=== PATIENT | female | born 1965 | race Caucasian/White ===

== ENCOUNTER 2018-04-13 17:57 | Observation (INO) ==
--- NOTE | 2018-04-13 18:26 | Emergency Department Note ---
Disposition Clinical Impression: History of cancer Fever Qualifiers: Fever type: unspecified Qualified Code(s): R50.9 - Fever, unspecified Nausea and vomiting Qualifiers: Vomiting type: unspecified Vomiting Intractability: non-intractable Qualified Code(s): R11.2 - Nausea with vomiting, unspecified Disposition: Admitted As Inpatient Condition: Fair Referrals: Hanh Pittman, ANIMAL TRAINER [Primary Care Provider] - Forms: ED Satisfaction Letter Time of Disposition: 20:08 Fever HPI - General Chief Complaint: ED Fever Stated Complaint: fever,vomiting Time Seen by Provider: 04/13/18 18:16 Source: patient Mode of arrival: ambulatory Limitations: no limitations Nursing Notes Reviewed: Yes Vital Signs Reviewed: Yes - History of Present Illness HPI Narrative: Patient is a 52-year-old female with past medical history of breast cancer with metastasis to the liver. Also has a history of hyperlipidemia. She is currently being treated at [facility]. She states that she receives chemotherapy 2 Fridays a month and then skips every third Friday, most recent treatment was within the past week. She presents today due to concern for fever, nausea, vomiting, general malaise. Patient states that she has had fevers up to 103 for the past 3 days. She is not taking [id number] Tylenol at home for fever. She is also had nausea and vomiting that started last night and has progressed into today. Denies any overt abdominal pain. Emesis was nonbloody, nonbilious. She does admit to a productive cough. She also has some congestion. She states that her grandkid has had recent cough, vomiting as well. She believes that she may have caught a viral illness from her grandkid. Denies any other chest pain, shortness of breath, abdominal pain, hematuria, diarrhea, blood in stool. She does not attend mild dysuria for the past few days and also admits to constipation. - Related Data Home Medications Medication Instructions Recorded Confirmed Atorvastatin Calcium [Lipitor] 20 mg PO DAILY 05/10/16 04/13/18 Glimepiride [Amaryl] 1 mg PO DAILY 05/10/16 04/13/18 Sertraline [Zoloft] 100 mg PO DAILY 05/10/16 04/13/18 Alogliptin Juvencio/Metformin HCl 1 tab PO BID 04/13/18 04/13/18 [Alogliptin-Metformin 12.5-500] Allergies Allergy/AdvReac Type Severity Reaction Status Date / Time No Known Allergies Allergy Verified 05/10/16 08:44 All systems ED: reviewed and negative except as stated. Constitutional: Reports: fever Cardiovascular: Denies: chest pain Respiratory: Reports: cough, sputum production. Denies: dyspnea Gastrointestinal: Reports: nausea, vomiting, constipation. Denies: abdominal pain, diarrhea, hematemesis, melena, hematochezia Genitourinary: Reports: dysuria. Denies: urgency, frequency, hematuria, discharge Neurological: Denies: headache, weakness, numbness, paresthesias Fever PMH - Past Medical History Medical history: Reports: diabetes, hyperlipidemia Surgical history: Reports: Psychiatric history: Reports: anxiety - Social History Smoking Status: Never smoker Alcohol use: Reports: none Drug use: Reports: none Physical Exam - General Limitations: no limitations General appearance: alert, in no apparent distress - Head Head exam: atraumatic, normocephalic, normal inspection - Eye Eye exam: Present: normal appearance, PERRL, EOMI - ENT ENT exam: normal oropharynx, mucous membranes dry - Neck Neck exam: Present: normal inspection, full ROM, trachea midline - Chest Chest inspection: Present: normal inspection, symmetric chest wall rise - Respiratory Respiratory exam: Present: normal lung sounds bilaterally. Absent: respiratory distress, wheezes, stridor, accessory muscle use - Cardiovascular Cardiovascular exam: Present: normal rhythm, tachycardia, normal heart sounds - Abdominal Exam Abdominal exam: Present: soft, Non-Tender. Absent: tenderness, distention, guarding, rebound, rigidity, Tanner's sign, Rovsing's sign, tenderness at McBurney's Point - Extremities Exam Extremities exam: Present: normal inspection, full ROM. Absent: tenderness, pedal edema - Neurological Exam Neurological exam: Present: alert, oriented X3. Absent: motor sensory deficit - Psychiatric Psychiatric exam: Present: normal affect, normal mood - Skin Skin exam: Present: warm, dry, intact, normal color Course Course Narrative: Patient was tachycardic and febrile on presentation. Dry mucous membranes. Lungs were clear to auscultation. Heart exam shows sinus tachycardia. Abdomen was soft and nontender with deep palpation. Negative Tanner's, negative McBurney's. We will go ahead and perform CBC, BMP, lactic acid, cultures, chest x-ray, urinalysis. We will not perform CT of abdomen and pelvis at this time as she has no abdominal tenderness. We will give 30 mL/kg bolus of fluids. We will likely start antibiotics depending on workup and then admit for dehydration and SIRS/possible sepsis criteria. 19:.4 labs show leukocytopenia; no signs of neutropenia at this time. anemia of 7.1. There is no previous hemoglobin to compare this to. Rectal exam was negative for blood. Patient denies any recent blood in stool or black/tarry stools. Chest x-ray negative for any acute cardio pulmonary process. Currently waiting on urinalysis. Went ahead and started vancomycin and Zosyn for empiric coverage. 19:58 . Urinalysis negative. We will admit for dehydration, leukopenia, anemia, nausea and vomiting, likely viral illness. Chest X-Ray 04/13/18 18:28 IMPRESSION: No acute process. Bibasilar hypoaeration D/ / Anthony Adams MD / Anthony Adams MD Interpreting Provider: Anthony Adams MD Vital Signs Temperature 103.1 F H 04/13/18 18:05 Pulse Rate 111 04/13/18 18:05 Respiratory Rate 14 04/13/18 18:05 Blood Pressure 101/62 04/13/18 18:05 O2 Sat by Pulse Oximetry 97 04/13/18 18:05 Temperature 103.1 F H 04/13/18 18:21 Pulse Rate 111 04/13/18 18:21 Respiratory Rate 14 04/13/18 18:21 Blood Pressure 101/62 04/13/18 18:21 O2 Sat by Pulse Oximetry 97 04/13/18 18:21 Oxygen Delivery Oxygen Delivery Room Air Fever - MDM Narrative Medical decision making narrative: Patient was tachycardic and febrile on presentation. Dry mucous membranes. Lungs were clear to auscultation. Heart exam shows sinus tachycardia. Abdomen was soft and nontender with deep palpation. Negative Tanner's, negative McBurney's. We will go ahead and perform CBC, BMP, lactic acid, cultures, chest x-ray, urinalysis. We will not perform CT of abdomen and pelvis at this time as she has no abdominal tenderness. We will give 30 mL/kg bolus of fluids. We will likely start antibiotics depending on workup and then admit for dehydration and SIRS/possible sepsis criteria. 19:.4 labs show leukocytopenia; no signs of neutropenia at this time. anemia of 7.1. There is no previous hemoglobin to compare this to. Rectal exam was negative for blood. Patient denies any recent blood in stool or black/tarry stools. Chest x-ray negative for any acute cardio pulmonary process. Currently waiting on urinalysis. Went ahead and started vancomycin and Zosyn for empiric coverage. 19:58 . Urinalysis negative. We will admit for dehydration, leukopenia, anemia, nausea and vomiting, likely viral illness. - Medical Records Medical records reviewed: Yes I reviewed the patient's medical records. - Lab Data Lab results reviewed: Yes I reviewed the patient's lab results. Result diagrams: 04/13/18 19:04 04/13/18 19:04 Lab Results 04/13/18 04/13/18 04/13/18 Range/Units 19:04 19:04 19:04 WBC 2.0 L (4.3-11.1) K/mcL RBC 2.88 L (3.82-4.97) M/mcL Hgb 7.1 L (11.5-15.4) g/dL Hct 22.6 L (35.3-44.9) % MCV 78.5 L (83.0-100.0) fL MCH 24.7 L (28.0-33.3) pg MCHC 31.4 L (31.6-35.5) g/dL RDW 22.9 H (11.5-14.5) % Plt Count 289 (140-400) K/mcL MPV 9.0 L (9.4-12.4) fL Immature Gran % 0.5 (0-4) % Seg Neutrophils % 85.1 % Lymphocytes % 10.9 % Monocytes % 3.0 % Eosinophils % 0.5 % Basophils % 0.0 % Neutrophils # 1.7 (1.6-8.9) K/mcL Lymphocytes # 0.2 L (0.6-4.6) K/mcL Monocytes # 0.1 (0.0-1.3) K/mcL Eosinophils # 0.0 (0.0-0.6) K/mcL Basophils # 0.0 (0.0-0.2) K/mcL PT 17.0 H (9.4-12.1) Seconds INR 1.5 APTT 33.2 (26.0-36.0) Seconds Sodium 132 L (136-145) mEq/L Potassium 3.8 (3.5-5.1) mEq/L Chloride 100 (98-107) mEq/L Carbon Dioxide 23 (23-29) mEq/L BUN 16 (6-20) mg/dL Creatinine 0.58 L (0.60-1.20) mg/dL Est GFR ( Amer) > 60 (> 60) Est GFR (Non-Af Amer) > 60 (> 60) BUN/Creatinine Ratio 28 H (6-26) Glucose 152 H (70-105) mg/dL Calculated Osmolality 278 L (280-300) Lactic Acid (0.5-2.2) mmol/L Calcium 8.5 L (8.6-10.3) mg/dL Phosphorus 2.0 L (2.7-4.5) mg/dL Magnesium 1.5 L (1.6-2.6) mg/dL Total Bilirubin 1.1 H (0.3-1.0) mg/dL Direct Bilirubin 0.3 H (0.0-0.2) mg/dL Indirect Bilirubin 0.8 (0.0-1.2) mg/dL AST 84 H (13-39) Units/L ALT 51 (7-52) Units/L Alkaline Phosphatase 105 H (34-104) Units/L Troponin I < 0.03 (< 0.04) ng/mL Serum Total Protein 7.3 (6.4-8.9) g/dL Albumin 3.1 L (3.5-5.7) g/dL Globulin 4.2 H (2.4-3.5) g/dL Albumin/Globulin Ratio 0.7 L (1.1-2.2) Ur Specimen Adequacy Urine Color (Yellow) Urine Clarity (Clear) Urine pH (5.0-8.0) pH Units Ur Specific [place] (1.010-1.025) Urine Protein (Neg-Trace) mg/dL Urine Glucose (UA) (Normal) mg/dL Urine Ketones (Negative) mg/dL Urine Blood (Negative) Urine Nitrite (Negative) Urine Bilirubin (Negative) Urine Urobilinogen (Normal) mg/dL Ur Leukocyte Esterase (Negative) Urine Microscopic RBC (0-3) per hpf Urine Microscopic WBC (0-3) per hpf Ur Squamous Epith Cells (None-Few) per lpf Urine Bacteria (None-Few) per hpf Hyaline Casts (None-Few) per lpf Ur Culture Indicated? (NO) 04/13/18 04/13/18 Range/Units 19:04 19:11 WBC (4.3-11.1) K/mcL RBC (3.82-4.97) M/mcL Hgb (11.5-15.4) g/dL Hct (35.3-44.9) % MCV (83.0-100.0) fL MCH (28.0-33.3) pg MCHC (31.6-35.5) g/dL RDW (11.5-14.5) % Plt Count (140-400) K/mcL MPV (9.4-12.4) fL Immature Gran % (0-4) % Seg Neutrophils % % Lymphocytes % % Monocytes % % Eosinophils % % Basophils % % Neutrophils # (1.6-8.9) K/mcL Lymphocytes # (0.6-4.6) K/mcL Monocytes # (0.0-1.3) K/mcL Eosinophils # (0.0-0.6) K/mcL Basophils # (0.0-0.2) K/mcL PT (9.4-12.1) Seconds INR APTT (26.0-36.0) Seconds Sodium (136-145) mEq/L Potassium (3.5-5.1) mEq/L Chloride (98-107) mEq/L Carbon Dioxide (23-29) mEq/L BUN (6-20) mg/dL Creatinine (0.60-1.20) mg/dL Est GFR ( Amer) (> 60) Est GFR (Non-Af Amer) (> 60) BUN/Creatinine Ratio (6-26) Glucose (70-105) mg/dL Calculated Osmolality (280-300) Lactic Acid 0.5 (0.5-2.2) mmol/L Calcium (8.6-10.3) mg/dL Phosphorus (2.7-4.5) mg/dL Magnesium (1.6-2.6) mg/dL Total Bilirubin (0.3-1.0) mg/dL Direct Bilirubin (0.0-0.2) mg/dL Indirect Bilirubin (0.0-1.2) mg/dL AST (13-39) Units/L ALT (7-52) Units/L Alkaline Phosphatase (34-104) Units/L Troponin I (< 0.04) ng/mL Serum Total Protein (6.4-8.9) g/dL Albumin (3.5-5.7) g/dL Globulin (2.4-3.5) g/dL Albumin/Globulin Ratio (1.1-2.2) Ur Specimen Adequacy See below A Urine Color Dark Yellow (Yellow) Urine Clarity Clear (Clear) Urine pH 6.5 (5.0-8.0) pH Units Ur Specific [place] 1.022 (1.010-1.025) Urine Protein 100 H (Neg-Trace) mg/dL Urine Glucose (UA) Normal (Normal) mg/dL Urine Ketones Trace H (Negative) mg/dL Urine Blood Negative (Negative) Urine Nitrite Negative (Negative) Urine Bilirubin Small H (Negative) Urine Urobilinogen >=8.0 H (Normal) mg/dL Ur Leukocyte Esterase Small H (Negative) Urine Microscopic RBC 5-15 H (0-3) per hpf Urine Microscopic WBC 5-15 H (0-3) per hpf Ur Squamous Epith Cells Many H (None-Few) per lpf Urine Bacteria Moderate H (None-Few) per hpf Hyaline Casts None Seen (None-Few) per lpf Ur Culture Indicated? NO. A (NO) - Radiology Data Radiology results reviewed: Yes I reviewed the patient's radiology results. - EKG Data EKG attestation: Yes I reviewed and interpreted this EKG. EKG results narrative: 04/13/2018 18:39. Sinus tachycardia. Rate 108. GA 146. QRS 97. QTC 427. Normal axis. No acute ST elevation or depression. S.B.A.R. - S.B.A.R. Situation: Demographics, MOA Background: Presenting Complaint, Relevant PMH, Meds, & Allergies Assessment: Vital Signs, Course and respsone to treatment, Exam Concerns, Patient/Family Expectation, Pertinant Lab Results Recommendation: Barrier(s) to disposition, Recommendation based on pending studies, treatments, or consults [place] Report Given to: Dr. Henry Barney Repor Time: 20:08
[2018-04-13] MEDS ORDERED: Ibuprofen 600 MG TABLET PO ONE (18:29)
[2018-04-13] MEDS ORDERED: Ondansetron 4 MG/2 ML VIAL IVP ONE (18:30)
--- NOTE | 2018-04-13 18:37 | Emergency Department Note ---
Disposition Clinical Impression: History of cancer Fever Qualifiers: Fever type: unspecified Qualified Code(s): R50.9 - Fever, unspecified Nausea and vomiting Qualifiers: Vomiting type: unspecified Vomiting Intractability: non-intractable Qualified Code(s): R11.2 - Nausea with vomiting, unspecified Disposition: Admitted As Inpatient Condition: Fair Referrals: Hanh Pittman, LABELS MOLDER [Primary Care Provider] - Forms: ED Satisfaction Letter General Adult HPI - General Chief complaint: ED Fever Stated complaint: fever,vomiting Time Seen by Provider: 04/13/18 18:16 Source: patient Mode of arrival: ambulatory Limitations: no limitations Nursing Notes Reviewed: Yes Vital Signs Reviewed: Yes - History of Present Illness HPI Narrative: ED attending attestation note: I examined this patient and my medical decision-making was reviewed with the emergency medicine resident DR PRETTY GRANADOS. I agree with the documented findings, disposition and treatment plan as described except to the extent set forth below. Briefly: 52-year-old female history of metastatic breast carcinoma. Is being treated that the [facility] from the [facility]. She has a IV port in place. Patient has undergone extensive treatment which includes but is not limited to chemotherapy both oral and IV, surgery, radiation therapy. Patient's last treatment was within the past week. Patient is had about 3 days of fever MAXIMUM TEMPERATURE of 103 measured at home occasional cough she has been exposed to one of her daughters who has a cough and her grandchild who has vomiting and an of a viral-like syndrome. Patient appears pale patient appears dehydrated. Patient will have a port accessed controlled blood send out labs give her IV fluids anti-medics analgesics. Check a chest x- ray and urinalysis and then for a infection with the antibiotics to be determined depending upon the labs and the imaging. And urinalysis. Providing 45 minutes critical care service this patient. Admission disposition pending Pain Scale: 0 - Related Data Home Medications Medication Instructions Recorded Confirmed Atorvastatin Calcium [Lipitor] 20 mg PO DAILY 05/10/16 05/10/16 Glimepiride [Amaryl] 1 mg PO DAILY 05/10/16 05/10/16 Sertraline [Zoloft] 100 mg PO DAILY 05/10/16 05/10/16 metFORMIN [Glucophage] 1,000 mg PO BIDWM 05/10/16 05/10/16 Allergies Allergy/AdvReac Type Severity Reaction Status Date / Time No Known Allergies Allergy Verified 05/10/16 08:44 Past Medical History - Past Medical History Medical history: Reports: diabetes, hyperlipidemia Surgical history: Reports: Psychiatric history: Reports: anxiety - Social History Smoking Status: Never smoker Alcohol use: Reports: none Drug use: Reports: none Physical Exam - General Limitations: no limitations Course Vital Signs Temperature 103.1 F H 04/13/18 18:05 Pulse Rate 111 04/13/18 18:05 Respiratory Rate 14 04/13/18 18:05 Blood Pressure 101/62 04/13/18 18:05 O2 Sat by Pulse Oximetry 97 04/13/18 18:05 Temperature 103.1 F H 04/13/18 18:21 Pulse Rate 111 04/13/18 18:21 Respiratory Rate 14 04/13/18 18:21 Blood Pressure 101/62 04/13/18 18:21 O2 Sat by Pulse Oximetry 97 04/13/18 18:21 Oxygen Delivery Oxygen Delivery Room Air
[2018-04-13 19:15] LABS: Eosinophils % 0.5 %; Hematocrit 22.6 % (35.3-44.9); Hemoglobin 7.1 g/dL (11.5-15.4); Immature Granulocytes % 0.5 % (0-4); Lymphocytes # 0.2 K/mcL (0.6-4.6); Lymphocytes % 10.9 %; Mean Corpuscular HGB Conc 31.4 g/dL (31.6-35.5); Mean Corpuscular Hemoglobin 24.7 pg (28.0-33.3); Mean Corpuscular Volume 78.5 fL (83.0-100.0); Monocytes # 0.1 K/mcL (0.0-1.3); Neutrophils # 1.7 K/mcL (1.6-8.9); Platelet Count 289 K/mcL (140-400); Red Blood Count 2.88 M/mcL (3.82-4.97); Red Cell Distribution Width 22.9 % (11.5-14.5); Segmented Neutrophils % 85.1 %
[2018-04-13] MEDS: 0.9 % Sodium Chloride 1,000 ML IVC SCH ×3 (19:16→21:53)
[2018-04-13 19:21] LABS: INR 1.5
[2018-04-13] MEDS ORDERED: Piperacillin/Tazobactam 3.375 GM in 0.9 % Sodium Chloride Mini Bag 100 ML IVPB ONE (19:21)
[2018-04-13 19:24] LABS: Activated Partial Thrombo Time 33.2 Seconds (26.0-36.0)
[2018-04-13 19:31] LABS: Troponin I < 0.03 ng/mL (< 0.04)
[2018-04-13 19:32] LABS: Alanine Aminotransferase 51 Units/L (7-52); Albumin 3.1 g/dL (3.5-5.7); Albumin/Globulin Ratio 0.7 (1.1-2.2); Alkaline Phosphatase 105 Units/L (34-104); Aspartate Amino Transferase 84 Units/L (13-39); BUN/Creatinine Ratio 28 (6-26); Bilirubin,Direct 0.3 mg/dL (0.0-0.2); Bilirubin,Indirect 0.8 mg/dL (0.0-1.2); Bilirubin,Total 1.1 mg/dL (0.3-1.0); Blood Urea Nitrogen 16 mg/dL (6-20); Calcium 8.5 mg/dL (8.6-10.3); Carbon Dioxide 23 mEq/L (23-29); Chloride 100 mEq/L (98-107); Globulin 4.2 g/dL (2.4-3.5); Glucose 152 mg/dL (70-105); Magnesium 1.5 mg/dL (1.6-2.6); Osmolality,Calculated 278 (280-300); Potassium 3.8 mEq/L (3.5-5.1); Sodium 132 mEq/L (136-145); Total Protein 7.3 g/dL (6.4-8.9); eGFR For Non-African Americans > 60 (> 60)
[2018-04-13 19:40] LABS: Bilirubin,Urine Small (Negative); Blood,Urine Negative (Negative); Clarity,Urine Clear (Clear); Color,Urine Dark Yellow (Yellow); Glucose,Urine (UA) Normal (Normal); Ketones,Urine Trace mg/dL (Negative); Leukocyte Esterase,Urine Small (Negative); Nitrite,Urine Negative (Negative); PH,Urine 6.5 pH Units (5.0-8.0); Protein,Urine 100 mg/dL (Neg-Trace); Specific Gravity,Urine 1.022 (1.010-1.025); Urobilinogen,Urine >=8.0 mg/dL (Normal)
[2018-04-13 19:43] LABS: Bacteria,Urine Moderate per hpf (None-Few); Hyaline Casts,Urine None Seen per lpf (None-Few); Squamous Epithelial Cell,Urine Many per lpf (None-Few)
[2018-04-13] MEDS ORDERED: Naloxone 0.4 MG/ML INJ IVP PRN (20:14)
--- NOTE | 2018-04-13 20:23 | Internal Med History&Physical ---
Date of Encounter: 04/14/18 Time of Encounter: 20:17 Internal Medicine - H&P: HPI Chief complaint: Fever, Nausea, Vomiting History of present illness: Ms. Urban is a 52 year old female with a past medical history of breast cancer with metastasis to the liver, DM and hyperlipidemia currently being treated at [facility] who presents today due to concern for fever, nausea, vomiting, general malaise. She states that she receives chemotherapy 2 Fridays a month and then skips every third Friday. Her most recent treatment was last Friday and was started on a new regimen. Has received multipe rounds previously prior to surgery as well as radiation therapy. She reports fevers up to 103 for the past 3 days. She had nausea and 1 episode vomiting that started last night and has progressed into today. Emesis was nonbloody, nonbilious. Denies any overt abdominal pain or diarrhea. She does admit to a productive cough but states that its now new. She also has some congestion but denies runny nose or soar throat. In terms of sick contacts, she states that her grandchild has had recent cough, vomiting as well and suspects that she may have caught a viral illness from them. Denies any other chest pain, shortness of breath, abdominal pain, hematuria, diarrhea, blood in stool. She does report mild dysuria for the past few days and also admits to constipation. Past Med Surg Social Fam HX - Past Medical History Medical history: diabetes, hyperlipidemia Psychiatric history: anxiety - Past Surgical History Surgical History: - Social History Smoking Status: Never smoker Alcohol use: none Drug use: none Internal Medicine - H&P: Meds Atorvastatin Calcium [Lipitor] 20 mg PO DAILY 05/10/16 [History] Glimepiride [Amaryl] 1 mg PO DAILY 05/10/16 [History] Sertraline [Zoloft] 100 mg PO DAILY 05/10/16 [History] Alogliptin Juvencio/Metformin HCl [Alogliptin-Metformin 12.5-500] 1 tab PO BID 04/13/18 [History] Allergy/AdvReac Type Severity Reaction Status Date / Time No Known Allergies Allergy Verified 05/10/16 08:44 All Systems PM: A 10-system review of systems was performed and is negative for pertinent findings except as documented above in the HPI. - Constitutional Constitutional: no chills, no fever(s), no night sweats - EENT Eyes: no change in vision, no discharge, no pain, no photophobia Ears: no ear discharge, no ear pain, no tinnitus Nose, mouth and throat: no dysphagia, no nasal discharge, no neck pain, no sore throat - Cardiovascular Cardiovascular ROS IM: no chest pain, no diaphoresis, no dyspnea, no lightheadedness, no palpitations, no syncope - Respiratory Respiratory: no cough, no dyspnea, no wheezing, no excessive phlegm production - Gastrointestinal Gastrointestinal: no abdominal pain, no diarrhea, no hematemesis, no hematochezia, no melena, no nausea, no vomiting - Genitourinary Genitourinary: no change in urinary stream, no dysuria, no flank pain, no hematuria - Musculoskeletal Musculoskeletal ROS IM: no numbness, no tingling - Integumentary Integumentary IM: no rash, no unusual bruising - Neurological Neurological ROS: no confusion, no convulsions, no focal weakness, no numbness, no tingling, no tremor(s) - Hematologic/Lymphatic Hematologic/Lymphatic: no easy bruising - Constitutional Vitals: Temp Pulse Resp BP Pulse Ox 103.1 F H 111 14 101/62 97 04/13/18 18:21 04/13/18 18:21 04/13/18 18:21 04/13/18 18:21 04/13/18 18:21 Exam: General: Alert and oriented 3; sitting up in bed in no acute distress. Skin:Normal color, no rash, no lesions. Port-A-Cath noted in right anterior chest wall. No surrounding erythema or tenderness to palpation. HEENT:EOM, pupils equal, round and reactive. No lesions of the mouth. Positive for Virchows node in the left supraclavicular space. Cardiovascular:Normal S1 & S2, no rubs, murmurs or gallops. No JVD. Pulse regular. Lungs/Chest:Normal breath sounds, no wheezes or crackles. Abdomen:Soft, non-tender, no rigidity. Extremities:No deformity, no edema or tenderness, no joint swelling or clubbing. Neurological:Normal cognition and motor skills. Pulses:Carotid and radial pulses normal +2. Rest of the physical exam is non contributory Internal Med - H&P Results - Labs CBC & Chem 7: 04/14/18 06:00 04/13/18 19:04 Labs: Short CBC 04/13/18 Range/Units 19:04 WBC 2.0 L (4.3-11.1) K/mcL Hgb 7.1 L (11.5-15.4) g/dL Hct 22.6 L (35.3-44.9) % Plt Count 289 (140-400) K/mcL Neutrophils # 1.7 (1.6-8.9) K/mcL BMP 04/13/18 19:04 Sodium 132 L Potassium 3.8 Chloride 100 Carbon Dioxide 23 BUN 16 Creatinine 0.58 L Glucose 152 H Calcium 8.5 L Cardiac Enzymes 04/13/18 Range/Units 19:04 Troponin I < 0.03 (< 0.04) ng/mL Liver Function 04/13/18 Range/Units 19:04 Total Bilirubin 1.1 H (0.3-1.0) mg/dL Direct Bilirubin 0.3 H (0.0-0.2) mg/dL AST 84 H (13-39) Units/L ALT 51 (7-52) Units/L Alkaline Phosphatase 105 H (34-104) Units/L Albumin 3.1 L (3.5-5.7) g/dL Urine 04/13/18 Range/Units 19:11 Urine Color Dark Yellow (Yellow) Urine Clarity Clear (Clear) Urine pH 6.5 (5.0-8.0) pH Units Ur Specific [place] 1.022 (1.010-1.025) Urine Protein 100 H (Neg-Trace) mg/dL Urine Glucose (UA) Normal (Normal) mg/dL - Impressions ITS Impressions Chest X-Ray 04/13/18 18:28 IMPRESSION: No acute process. Bibasilar hypoaeration D/ / Anthony Adams MD / Anthony Adams MD Interpreting Provider: Anthony Adams MD - Assessment and plan (1) Fever Current Visit: Yes Status: Acute Assessment and plan: Three day history of fevers associated with nausea, vomiting and abdominal pain in the setting of breast cancer status post chemotherapy last dose of which was last Friday. Fever 103.1 on admission. Patient is not technically neutropenic at this time given her neutrophil count of 1700. Given history of exposure to grandchild with what appears to be a stomach virus, patient may have contracted the same. Her cough appears to be chronic amd CXR was unremarkable. She does endorse some mild dysuria. Port-A-Cath in right anterior chest wall intact without any evidence of erythema or tenderness to palpation. Nonetheless we will start patient on broad-spectrum antibiotics. Obtain blood and urine cultures. Qualifiers: Fever type: unspecified Qualified Code(s): R50.9 - Fever, unspecified (2) Sepsis Current Visit: Yes Status: Acute Assessment and plan: Sepsis in the setting of fever, leukopenia. Patient's blood pressure was 101 systolic on arrival but transiently dropped to 89. Patient is currently on her second liter of bolus. Blood pressure has slightly improved to the mid 90s. Initial lactic acid was 0.5 patient overall appears stable. She is currently receiving her second bolus. We will monitor closely. Qualifiers: Qualified Code(s): A41.9 - Sepsis, unspecified organism (3) Nausea and vomiting Current Visit: Yes Status: Acute Assessment and plan: 1 episode of nonbloody nonbillious emesis. Patient ate soup prior to my assessment and is tolerating thus far. Antiemetics PRN Qualifiers: Vomiting type: unspecified Vomiting Intractability: non-intractable Qualified Code(s): R11.2 - Nausea with vomiting, unspecified (4) Leukopenia due to antineoplastic chemotherapy Current Visit: Yes Status: Acute Assessment and plan: Leukopenia with a white count of 3 in the setting of recent chemotherapy.. Neutrophil count of 1700. Patient has recent blood work performed which she will attempt to look up and provide. We will monitor for now. (5) Anemia Current Visit: Yes Status: Acute Assessment and plan: Microcytic anemia of 7.1. We will type and cross and transfuse 1 unit of blood. Qualifiers: Anemia type: unspecified type Qualified Code(s): D64.9 - Anemia, unspecified (6) Type 2 diabetes mellitus Current Visit: Yes Status: Acute Assessment and plan: Blood glucose checks. Sliding scale insulin. Qualifiers: Qualified Code(s): E11.9 - Type 2 diabetes mellitus without complications (7) Breast cancer Current Visit: Yes Status: Acute Assessment and plan: Breast cancer status post chemotherapy and radiation therapy. Patient started new regimen this last Friday. Qualifiers: Laterality: unspecified laterality Qualified Code(s): C50.919 - Malignant neoplasm of unspecified site of unspecified female breast (8) DVT prophylaxis Current Visit: Yes Status: Acute Assessment and plan: Patient has anemia likely secondary to bone marrow suppression. We will start patient on subcutaneous heparin and monitor. - Time Spent With Patient Total time spent is greater than 50% in coordination of care (as documented) at patient's floor/unit and/or counseling patient:
[2018-04-13] MEDS ORDERED: *HR* Dextrose 50 % in Water (Syg) 50 ML SYRINGE IVP PRN (20:34)
[2018-04-13] MEDS ORDERED: D5% in Water 1,000 ML IVC PRN (20:34)
[2018-04-13] MEDS ORDERED: Dextrose Gel 15 GM/37.5 ML TUBE PO PRN ×2 (20:34)
[2018-04-14] MEDS ORDERED: 0.9 % Sodium Chloride 250 ML ONE (01:22)
[2018-04-14 06:20] LABS: Red Cell Distribution Width 21.9 % (11.5-14.5)
[2018-04-14 06:21] LABS: Basophils % 0.6 %; Eosinophils % 1.9 %; Hematocrit 22.7 % (35.3-44.9); Hemoglobin 7.1 g/dL (11.5-15.4); Lymphocytes # 0.2 K/mcL (0.6-4.6); Mean Corpuscular HGB Conc 31.3 g/dL (31.6-35.5); Mean Corpuscular Hemoglobin 24.9 pg (28.0-33.3); Mean Corpuscular Volume 79.6 fL (83.0-100.0); Mean Platelet Volume 8.9 fL (9.4-12.4); Monocytes % 2.5 %; Neutrophils # 1.3 K/mcL (1.6-8.9); Platelet Count 238 K/mcL (140-400); Red Blood Count 2.85 M/mcL (3.82-4.97)
[2018-04-14 06:27] LABS: INR 1.4; Prothrombin Time 15.3 Seconds (9.4-12.1)
[2018-04-14 06:42] LABS: Anisocytosis 2+ (Not Present); Microcytosis Present (Not Present); Platelet Estimate Normal (Normal)
[2018-04-14 07:07] LABS: Alanine Aminotransferase 42 Units/L (7-52); Albumin 2.7 g/dL (3.5-5.7); Albumin/Globulin Ratio 0.7 (1.1-2.2); Alkaline Phosphatase 97 Units/L (34-104); Aspartate Amino Transferase 60 Units/L (13-39); BUN/Creatinine Ratio 29 (6-26); Bilirubin,Total 0.8 mg/dL (0.3-1.0); Blood Urea Nitrogen 12 mg/dL (6-20); Calcium 8.1 mg/dL (8.6-10.3); Carbon Dioxide 22 mEq/L (23-29); Chloride 108 mEq/L (98-107); Globulin 3.7 g/dL (2.4-3.5); Glucose 130 mg/dL (70-105); Magnesium 1.6 mg/dL (1.6-2.6); Osmolality,Calculated 288 (280-300); Potassium 3.8 mEq/L (3.5-5.1); Sodium 138 mEq/L (136-145); Total Protein 6.4 g/dL (6.4-8.9); eGFR For Non-African Americans > 60 (> 60)
[2018-04-14] MEDS: 0.9 % Sodium Chloride 1,000 ML IVC SCH ×2 (07:55→15:20)
[2018-04-14] MEDS: Insulin LISPRO 300 UNITS/3 ML VIAL SQ SCH ×4 (07:56→17:12)
[2018-04-14] MEDS: Acetaminophen 325 MG TABLET PO PRN ×2 (08:13→16:11)
--- NOTE | 2018-04-14 09:50 | Internal Med Progress Note ---
Hospitalist Progress Note - Encounter Date of Encounter: 04/14/18 Time of Encounter: 09:48 - Subjective Interval History: Patient with history of metastatic breast cancer to liver on chemotherapy , diabetes, high cholesterol. Patient admitted with nausea and vomiting generalized malaise with fever up to 103 for 3 days. Has some nonproductive cough no dysuria evaluation chest x ray was unremarkable UA is unclear about UTI patient started on broad-spectrum antibiotic Zosyn and vancomycin I think at this point I will also consult ID for input regarding no clear source of the infection white count is 1.6 from chemotherapy - Exam Vitals: Temp Pulse Resp BP Pulse Ox 99.6 F 97 14 100/65 97 04/14/18 09:15 04/14/18 07:37 04/14/18 07:37 04/14/18 07:37 04/14/18 08:18 Exam: General: Alert and oriented 3; sitting up in bed in no acute distress. Skin:Normal color, no rash, no lesions. Port-A-Cath noted in right anterior chest wall. No surrounding erythema or tenderness to palpation. HEENT:EOM, pupils equal, round and reactive. No lesions of the mouth. Positive for Virchows node in the left supraclavicular space. Cardiovascular:Normal S1 & S2, no rubs, murmurs or gallops. No JVD. Pulse regular. Lungs/Chest:Normal breath sounds, no wheezes or crackles. Abdomen:Soft, non-tender, no rigidity. Extremities:No deformity, no edema or tenderness, no joint swelling or clubbing. Neurological:Normal cognition and motor skills. Pulses:Carotid and radial pulses normal +2. Rest of the physical exam is non contributory - Assessment and Plan (1) Fever Current Visit: Yes Status: Acute Assessment and Plan: Patient meets sepsis criteria of the started on broad-spectrum antibiotic with nuclear source of infection (2) Nausea and vomiting Current Visit: Yes Status: Acute Assessment and Plan: Resolved (3) Pancytopenia due to chemotherapy Current Visit: Yes Status: Acute Assessment and Plan: Pancytopenia due to chemotherapy patient by definition is not neutropenic (4) Type 2 diabetes mellitus Current Visit: Yes Status: Chronic Assessment and Plan: We will continue sliding scale and IV hydration (5) Sepsis Current Visit: Yes Status: Acute Assessment and Plan: no clear source will consult ID - Time Spent with Patient Total time spent is greater than 50% in coordination of care (as documented) at patient's floor/unit and/or counseling patient: Internal Medicine: Result - Labs CBC & Chem 7: 04/14/18 06:00 04/14/18 06:00 Labs: Short CBC 04/13/18 04/14/18 Range/Units 19:04 06:00 WBC 2.0 L 1.6 L (4.3-11.1) K/mcL Hgb 7.1 L 7.1 L (11.5-15.4) g/dL Hct 22.6 L 22.7 L (35.3-44.9) % Plt Count 289 238 (140-400) K/mcL Neutrophils # 1.7 1.3 L (1.6-8.9) K/mcL BMP 04/13/18 04/14/18 19:04 06:00 Sodium 132 L 138 Potassium 3.8 3.8 Chloride 100 108 H Carbon Dioxide 23 22 L BUN 16 12 Creatinine 0.58 L 0.41 L Glucose 152 H 130 H Calcium 8.5 L 8.1 L Cardiac Enzymes 04/13/18 Range/Units 19:04 Troponin I < 0.03 (< 0.04) ng/mL Liver Function 04/13/18 04/14/18 Range/Units 19:04 06:00 Total Bilirubin 1.1 H 0.8 (0.3-1.0) mg/dL Direct Bilirubin 0.3 H (0.0-0.2) mg/dL AST 84 H 60 H (13-39) Units/L ALT 51 42 (7-52) Units/L Alkaline Phosphatase 105 H 97 (34-104) Units/L Albumin 3.1 L 2.7 L (3.5-5.7) g/dL Urine 04/13/18 Range/Units 19:11 Urine Color Dark Yellow (Yellow) Urine Clarity Clear (Clear) Urine pH 6.5 (5.0-8.0) pH Units Ur Specific [place] 1.022 (1.010-1.025) Urine Protein 100 H (Neg-Trace) mg/dL Urine Glucose (UA) Normal (Normal) mg/dL - ABG Interpretation ABG results: PT/INR, D-dimer PT 15.3 Seconds (9.4-12.1) H 11/13/18 06:00 - Impressions Impressions Chest X-Ray 04/13/18 18:28 IMPRESSION: No acute process. 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
--- NOTE | 2018-04-14 11:05 | Infectious Disease Consult ---
Date of Encounter: 04/14/18 Time of Encounter: 10:39 Assessment and Plan (1) Sepsis Status: Acute Assessment and plan: The patient had three SIRS criteria on admission (leukopenia, fever, tachycardia). Etiology unclear: viral syndrome vs. chemotherapy vs. other. Improved clinically. Fever curve improved and tachycardia resolved. Blood cultures drawn 04/13/18 are NGTD x 2 sets. Recommendations: - Await cultures. - Check RIP. - Consider CT of the C/A/P if workup non-revealing. - Continue Vancomycin IV. Pharmacy to dose. Goal trough ~15. - Continue Zosyn 3.375 grams IV Q8H. - Duration of treatment depends on the clinical picture. - Monitor renal function and for drug toxicity and dose-adjust antibiotics. Qualifiers: Sepsis type: sepsis due to unspecified organism Qualified Code(s): A41.9 - Sepsis, unspecified organism (2) Nausea and vomiting Status: Acute Assessment and plan: Etiology unclear: viral syndrome vs. other. Resolved since admission. Qualifiers: Vomiting type: unspecified Vomiting Intractability: non-intractable Qualified Code(s): R11.2 - Nausea with vomiting, unspecified (3) Type 2 diabetes mellitus Status: Chronic Qualifiers: Diabetes mellitus nursing home insulin use: unspecified nursing home insulin use status Diabetes mellitus complication detail: with other oral complications Qualified Code(s): E11.638 - Type 2 diabetes mellitus with other oral complications (4) Breast cancer Status: Acute Assessment and plan: Diagnosed July 2017. Follows with [facility]. Status post radical mastectomy 11/2017. Currently on Gemzar and Carboplatin, last dose 04/10/18. Consider conferring with patient's oncologist at [facility]. Qualifiers: Breast location: unspecified site of breast Estrogen receptor status: unspecified Patient sex: female Laterality: left Qualified Code(s): C50.912 - Malignant neoplasm of unspecified site of left female breast Infectious Disease HPI - Data of Consult Patient: new to practice Consult date: 04/14/18 Requesting Physician: Aleshia Figueroa MD Primary Care Provider: Hanh Pittman CNP - Consult Narrative Reason for consult: Fever, immunosuppressed History of present illness: Ms. Urban is a 52 year old female with a past medical history of metastatic breast cancer with metastases to the abdominal lymph nodes and liver diagnosed in July 2017 status post left modified radical mastectomy in November 2017 currently on Gemzar and carboplatin most recently received 04/10/18, hyperlipidemia, and diabetes. The patient was admitted to the hospital 04/13/18 for fever, nausea, and vomiting. We are consulted 04/14/18 for further workup recommendations for fever in an immunocompromised patient. Briefly, the patient is a 52-year-old female with past medical history as stated above. The patient presented to the emergency department with a three-day history of fever, nausea, and vomiting congestion. Upon arrival, the patient was febrile with a temperature of 103.1. She was tachycardic. Laboratory studies revealed leukopenia with an ANC of 1700. Her bilirubin was also mildly elevated at 1.1. Urinalysis appears contaminated. Blood cultures were obtained 2 sets. Chest x-ray was negative. She was started on empiric IV antibiotics and admitted to the hospital for further evaluation. Since admission, the patient's fever curve has improved. She did have an episode of tachypnea. Her white count is 1.6 today with an ANC of 1300. Her bilirubin has normalized. LFTs are within normal limits. She is not currently prescribed any antibiotics. We have been asked to evaluate and make further recommendations. During my exam today, the patient endorses a history as stated above. She reported that her fevers and initially started back on 04/09/18. She did receive her chemotherapy on 04/10/18, but was actually afebrile that day. She states she started having fevers again that evening after getting chemotherapy. She also reported an episode of nausea with vomiting yesterday prior to presentation. She reports some nasal congestion with green drainage. Denies any headache or neck pain/stiffness. Denies any sore throat or earache or dental pain. Reports a moist sparse sleep productive cough with clear sputum. Denies any shortness of breath or chest pain. Denies any abdominal pain or urinary complaints. States her appetite has been okay. Denies back or flank pain. Denies joint of extremity pain. Denies oral thrush. Denies skin rashes/lesions and states her surgical site is well-healed without pain/complication. She reports her A-port has been without redness, warmth, or drainage and infused her chemo without a problem. The patient lives at home with her family. She denies tobacco, alcohol, or illicit drug use. Reports she has two dogs at home, but denies any bites or scratches. Denies recent travel outside the [facility]. Denies any chronic infectious diseases. CC: Aleshia Figueroa MD Past Med Surg Social Fam HX - Past Medical History Attestation: Yes The following information was validated with the patient. Source: patient, old records reviewed, nursing notes reviewed Medical history: diabetes, hyperlipidemia Psychiatric history: anxiety - Past Surgical History Surgical History: - Social History Smoking Status: Never smoker Smokeless Tobacco Status: No Alcohol use: none Drug use: none Occupational status: unemployed Current living situation: Home, With Family Activity Level: Independent ambulation Recent Out of Country Travel Within the Last 8 Weeks: No Exposure or Possible Exposure to Illness During Travel: No Infectious Disease-CN:Meds Atorvastatin Calcium [Lipitor] 20 mg PO DAILY 05/10/16 [History] Glimepiride [Amaryl] 1 mg PO DAILY 05/10/16 [History] Sertraline [Zoloft] 100 mg PO DAILY 05/10/16 [History] RX: Alogliptin Juvencio/Metformin HCl [Alogliptin-Metformin 12.5-500] 1 tab PO BID 04/13/18 [History] Allergy/AdvReac Type Severity Reaction Status Date / Time No Known Allergies Allergy Verified 05/10/16 08:44 All systems: reviewed and no additional remarkable complaints except as stated Exam - Constitutional Vitals: Temp Pulse Resp BP Pulse Ox 99.6 F 97 14 100/65 97 04/14/18 09:15 04/14/18 07:37 04/14/18 07:37 04/14/18 07:37 04/14/18 08:18 General appearance: average body habitus, cooperative, no acute distress - Head Head exam: Present: atraumatic, normal inspection, normocephalic - Eye Eye exam: Present: EOMI, normal appearance, PERRL Pupils: Present: normal accommodation - ENT ENT exam: Present: mucous membranes moist - Neck Neck exam: Present: normal inspection. Absent: meningismus - Respiratory Respiratory exam: Present: CTAB. Absent: rales, respiratory distress, rhonchi, wheezes - Cardiovascular Cardiovascular exam: Present: RRR, +S1, +S2 - GI/Abdominal GI/Abdominal exam: Present: normal bowel sounds, soft. Absent: distended, tenderness - Rectal Additional comments: No michele-rectal abscess noted. - Extremities Exam Extremities exam: Present: normal inspection. Absent: joint swelling, pedal edema, tenderness - Back Exam Back exam: Present: normal inspection. Absent: CVA tenderness (L), CVA tenderness (R), paraspinal tenderness, vertebral tenderness - Neurological Exam Neurological exam: Present: alert, oriented X3, no focal deficits - Psychiatric Psychiatric exam: Present: normal affect, normal mood - Skin Skin exam: Present: dry, intact, normal color, warm Additional comments: Surgical scar noted to the left chest wall well-healed without erythema, warmth, or tenderness noted. A-port noted to the right upper chest without redness, warmth, or tenderness noted. Transparent dressing is lifted and nursing was made aware. Infectious Disease CN: Results - Labs CBC & Chem 7: 04/14/18 06:00 04/14/18 06:00 Cultures: Cultures 04/13/18 19:04 Blood Culture - Preliminary Peripheral Venipuncture Culture is incubating and being continuously monitored for growth. Final report to follow. 04/13/18 18:46 Blood Culture - Preliminary Peripheral Venipuncture Culture is incubating and being continuously monitored for growth. Final report to follow. Serology: Serology 04/13/18 Range/Units 19:11 Ur Specimen Adequacy See below A Urine Color Dark Yellow (Yellow) Urine Clarity Clear (Clear) Urine pH 6.5 (5.0-8.0) pH Units Ur Specific [place] 1.022 (1.010-1.025) Urine Protein 100 H (Neg-Trace) mg/dL Urine Glucose (UA) Normal (Normal) mg/dL Urine Ketones Trace H (Negative) mg/dL Urine Blood Negative (Negative) Urine Nitrite Negative (Negative) Urine Bilirubin Small H (Negative) Urine Urobilinogen >=8.0 H (Normal) mg/dL Ur Leukocyte Esterase Small H (Negative) Urine Microscopic RBC 5-15 H (0-3) per hpf Urine Microscopic WBC 5-15 H (0-3) per hpf Ur Squamous Epith Cells Many H (None-Few) per lpf Urine Bacteria Moderate H (None-Few) per hpf Hyaline Casts None Seen (None-Few) per lpf Ur Culture Indicated? NO. A (NO) Consult Discharge Plan - Plan Referrals: Hanh Pittman, ALLIANCE MANAGER [Primary Care Provider] - - Attending Attestation I examined this patient and my medical decision-making was reviewed with the Resident Physician. I agree with the documented findings, disposition and treatment plan as described except to the extent set forth below. This is an addendum to original report dictated by Nhung Kelley CNP. Please refer to Florian note for full detail. Patient is a 52-year-old woman who unfortunately has metastatic breast cancer refractory to treatment status post radical mastectomy in the past currently is on carboplatin and Gemzar. Patient received her chemotherapy on April 10. Patient tells us that one day prior to chemotherapy she did have a fever home. She also has been exposed to her grandchild who had a URI symptoms. Review of system on the patient are positive for sinus drainage, no earache, no toothache, no sore throat but she does have this cough with clear sputum. Patient also has been having nausea and vomiting. Patient denies any diarrhea. Patient denies any abdominal pain. Patient denies any urinary symptoms. Assessment and plan Neutropenic fever Sepsis URI symptoms Nausea and vomiting Breast cancer stage IV with metastases currently on carboplatin and Gemzar Diabetes mellitus type 2 Recommendations: At this point we are not sure where the source of sepsis is. Or highest index of suspicion includes a viral syndrome from an upper respiratory tract infection. Intra-abdominal process is still positive but less likely since her ANC has not gone below 500 yet. Physical exam shows no perirectal abscess. Agree with broad-spectrum antibiotics for now until the cultures finalize. Check respiratory infectious panel Check urine legionella and pneumococcal antigen If patient does not improve clinically we will consider doing CT head chest abdomen and pelvis Monitor labs and for drug toxicity Vancomycin trough around 15
[2018-04-14 18:42] LABS: Adenovirus Not Detected (Not Detect); Bordetella Pertussis Not Detected (Not Detect); Chlamydophila pneumoniae Not Detected (Not Detect); Coronavirus 229E Not Detected (Not Detect); Coronavirus HKU1 Not Detected (Not Detect); Coronavirus NL63 Not Detected (Not Detect); Coronavirus OC43 Not Detected (Not Detect); Human Metapneumovirus Not Detected (Not Detect); Human Rhinovirus/Enterovirus Not Detected (Not Detect); Influenza A Subtype 2009 H1 Not Detected (Not Detect); Influenza A Untypeable Not Detected (Not Detect); Influenza B Not Detected (Not Detect); Mycoplasma pneumoniae Not Detected (Not Detect); Parainfluenza Virus 1 Not Detected (Not Detect); Parainfluenza Virus 2 Not Detected (Not Detect); Parainfluenza Virus 3 Not Detected (Not Detect); Parainfluenza Virus 4 Not Detected (Not Detect); Respiratory Syncytial Virus Not Detected (Not Detect)
[2018-04-15 05:02] LABS: Hematocrit 21.6 % (35.3-44.9); Mean Corpuscular HGB Conc 31.5 g/dL (31.6-35.5); Mean Corpuscular Hemoglobin 24.8 pg (28.0-33.3); Mean Platelet Volume 8.5 fL (9.4-12.4); Platelet Count 213 K/mcL (140-400); Red Blood Count 2.74 M/mcL (3.82-4.97); Red Cell Distribution Width 21.8 % (11.5-14.5)
[2018-04-15 05:05] LABS: Hemoglobin 6.8 g/dL (11.5-15.4); Mean Corpuscular Volume 78.8 fL (83.0-100.0)
[2018-04-15] MEDS: Insulin LISPRO 300 UNITS/3 ML VIAL SQ SCH ×3 (08:22→16:54)
--- NOTE | 2018-04-15 09:01 | Internal Med Progress Note ---
Hospitalist Progress Note - Encounter Date of Encounter: 04/15/18 Time of Encounter: 09:04 - Subjective Interval History: Patient with history of metastatic breast cancer to liver on chemotherapy , diabetes, high cholesterol. Patient admitted with nausea and vomiting generalized malaise with fever up to 103 for 3 days. Has some nonproductive cough no dysuria evaluation chest x ray was unremarkable UA is unclear about UTI patient started on broad-spectrum antibiotic Zosyn and vancomycin I think at this point I will also consult ID for input regarding no clear source of the infection white count is 1.6 from chemotherapy 04/15 Patient seen and examined Says she feels the same no fever or chills. has low grade fever not high enough to meet neutropenic fever has some dry cough no dysuria ID evaluation appreciated white count is down to 0.6 with hemoglobin also down to 6.8 I will consult oncology for follow-up is all likely due to chemotherapy response . awaits infection disease follow evaluation and will discharge when okay from ID standpoint and oncology standpoint - Exam Vitals: Temp Pulse Resp BP Pulse Ox 99.0 F 96 18 106/70 98 04/15/18 07:13 04/15/18 07:13 04/15/18 07:13 04/15/18 07:13 04/15/18 07:13 Exam: General: Alert and oriented 3; sitting up in bed in no acute distress. Skin:Normal color, no rash, no lesions. Port-A-Cath noted in right anterior chest wall. No surrounding erythema or tenderness to palpation. HEENT:EOM, pupils equal, round and reactive. No lesions of the mouth. Positive for Virchows node in the left supraclavicular space. Cardiovascular:Normal S1 & S2, no rubs, murmurs or gallops. No JVD. Pulse regular. Lungs/Chest:Normal breath sounds, no wheezes or crackles. Abdomen:Soft, non-tender, no rigidity. Extremities:No deformity, no edema or tenderness, no joint swelling or clubbing. Neurological:Normal cognition and motor skills. Pulses:Carotid and radial pulses normal +2. Rest of the physical exam is non contributory - Assessment and Plan (1) Fever Current Visit: Yes Status: Acute Assessment and Plan: Currently low grade fever does not meet definition criteria for neutropenic fever Infection disease consult appreciated and await follow-up evaluation (2) Nausea and vomiting Current Visit: Yes Status: Acute Assessment and Plan: Resolved (3) Pancytopenia due to chemotherapy Current Visit: Yes Status: Acute Assessment and Plan: Was not on pancytopenia most likely secondary to chemotherapy Consult oncology for follow-up (4) Type 2 diabetes mellitus Current Visit: Yes Status: Chronic Assessment and Plan: Continue sliding scale (5) Sepsis Current Visit: Yes Status: Acute Assessment and Plan: Sepsis ruled out cultures negative - Time Spent with Patient Total time spent is greater than 50% in coordination of care (as documented) at patient's floor/unit and/or counseling patient: Internal Medicine: Result - Labs CBC & Chem 7: 04/15/18 04:15 04/14/18 06:00 Labs: Short CBC 04/15/18 Range/Units 04:15 WBC 0.6 L* D (4.3-11.1) K/mcL Hgb 6.8 L (11.5-15.4) g/dL Hct 21.6 L (35.3-44.9) % Plt Count 213 (140-400) K/mcL - ABG Interpretation ABG results: PT/INR, D-dimer PT 15.3 Seconds (9.4-12.1) H 04/14/18 06:00 Consult Discharge Plan - Plan Referrals: Hanh Pittman, [employer]ACLE EBS ARCHITECT [Primary Care Provider] - (1) Fever Qualifiers: Fever type: unspecified Qualified Code(s): R50.9 - Fever, unspecified (2) Nausea and vomiting Qualifiers: Vomiting type: unspecified Vomiting Intractability: non-intractable Qualified Code(s): R11.2 - Nausea with vomiting, unspecified (4) Type 2 diabetes mellitus Qualifiers: Diabetes mellitus care home insulin use: unspecified 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
--- NOTE | 2018-04-15 10:51 | Infectious Disease Progress No ---
Date of Encounter: 04/15/18 Time of Encounter: 10:49 - Assessment and Plan (1) Sepsis Current Visit: Yes Status: Acute The patient had three SIRS criteria on admission (leukopenia, fever, tachycardia). Etiology unclear: viral syndrome vs. chemotherapy vs. other. Improved clinically. Fever curve improved and tachycardia resolved. MAXIMUM TEMPERATURE 100.5 overnight. Blood cultures drawn 04/13/18 are NGTD x 2 sets. Recommendations: - Await cultures. - Run differential on CBC. - Get CT of the head, chest, abdomen, and pelvis. - Recommend transfer to [facility] for evaluation by the patient's oncology team. Dr. Ha notified. - Continue Vancomycin IV. Pharmacy to dose. Goal trough ~15. - Continue Zosyn 3.375 grams IV Q8H. - Duration of treatment depends on the clinical picture. - Monitor renal function and for drug toxicity and dose-adjust antibiotics. Qualifiers: Sepsis type: sepsis due to unspecified organism Qualified Code(s): A41.9 - Sepsis, unspecified organism (2) Neutropenia Current Visit: Yes Status: Acute Etiology: Unclear. Possible infection versus chemotherapy versus other. White blood cell count 0.6 this morning no differential was completed. Have called the lab to ask them to run the differential. ANC yesterday was 1700, but I anticipate it is much lower today. Qualifiers: Neutropenia type: unspecified Qualified Code(s): D70.9 - Neutropenia, unspecified (3) Nausea and vomiting Current Visit: Yes Status: Acute Etiology unclear: viral syndrome vs. other. Resolved since admission. 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 Follows with [facility]. Status post radical mastectomy 11/2017. Currently on Gemzar and Carboplatin, last dose 04/10/18. Consider conferring with patient's oncologist at [facility]. Qualifiers: Breast location: unspecified site of breast Estrogen receptor status: unspecified Patient sex: female Laterality: left Qualified Code(s): C50.912 - Malignant neoplasm of unspecified site of left female breast - Subjective Interval history: Patient seen and examined with family at the bedside. No acute events noted overnight. Patient states overall she feels well and was ready to go home. She denies any headache or neck pain. She should continue to report some nasal congestion and cough productive of clear sputum. She denies any dental pain, sore throat, or earache. She denies any fevers or chills or rigors. She denies any chest pain or shortness of breath. She denies any nausea, vomiting, diarrhea, constipation. She denies abdominal pain or urinary complaints. She denies any back, joint, or extremity pain. She denies any oral thrush or new skin lesions. Infect Dis PN-Objective Data - Labs CBC & Chem 7: 04/15/18 04:15 04/15/18 11:15 Labs: Laboratory Results - last 24 hr 04/14/18 04/14/18 04/14/18 07:33 11:46 16:13 WBC RBC Hgb Hct MCV MCH MCHC RDW Plt Count MPV POC Glucose 142 H 124 H 150 H Chlamy pneumoniae PCR Adenovirus (PCR) B. pertussis DNA (PCR) B.parapertussis DNA PCR Coronavirus OC43 (PCR) Coronavirus HKU1 (PCR) Coronavirus 229E (PCR) Coronavirus NL63 (PCR) Human Metapneumovir PCR Influenza A (H1) PCR Influ A (H1N1/09) PCR Influenza A (H3) PCR Influenza A Untype (PCR) Influenza Type B (PCR) M.pneumoniae DNA (PCR) Parainfluenza 1 (PCR) Parainfluenza 2 (PCR) Parainfluenza 3 (PCR) Parainfluenza 4 (PCR) RSV (PCR) Entero/Rhino (PCR) Specimen Rejected 04/14/18 04/14/18 04/15/18 17:38 20:15 03:50 WBC RBC Hgb Hct MCV MCH MCHC RDW Plt Count MPV POC Glucose 250 H Chlamy pneumoniae PCR Not Detected Adenovirus (PCR) Not Detected B. pertussis DNA (PCR) Not Detected B.parapertussis DNA PCR Not Detected Coronavirus OC43 (PCR) Not Detected Coronavirus HKU1 (PCR) Not Detected Coronavirus 229E (PCR) Not Detected Coronavirus NL63 (PCR) Not Detected Human Metapneumovir PCR Not Detected Influenza A (H1) PCR Not Detected Influ A (H1N1/09) PCR Not Detected Influenza A (H3) PCR Not Detected Influenza A Untype (PCR) Not Detected Influenza Type B (PCR) Not Detected M.pneumoniae DNA (PCR) Not Detected Parainfluenza 1 (PCR) Not Detected Parainfluenza 2 (PCR) Not Detected Parainfluenza 3 (PCR) Not Detected Parainfluenza 4 (PCR) Not Detected RSV (PCR) Not Detected Entero/Rhino (PCR) Not Detected Specimen Rejected Miscellaneous 04/15/18 04:15 WBC 0.6 L* D RBC 2.74 L Hgb 6.8 L Hct 21.6 L MCV 78.8 L MCH 24.8 L MCHC 31.5 L RDW 21.8 H Plt Count 213 MPV 8.5 L POC Glucose Chlamy pneumoniae PCR Adenovirus (PCR) B. pertussis DNA (PCR) B.parapertussis DNA PCR Coronavirus OC43 (PCR) Coronavirus HKU1 (PCR) Coronavirus 229E (PCR) Coronavirus NL63 (PCR) Human Metapneumovir PCR Influenza A (H1) PCR Influ A (H1N1/09) PCR Influenza A (H3) PCR Influenza A Untype (PCR) Influenza Type B (PCR) M.pneumoniae DNA (PCR) Parainfluenza 1 (PCR) Parainfluenza 2 (PCR) Parainfluenza 3 (PCR) Parainfluenza 4 (PCR) RSV (PCR) Entero/Rhino (PCR) Specimen Rejected Cultures: Cultures 04/13/18 19:04 Blood Culture - Preliminary Peripheral Venipuncture Culture is incubating and being continuously monitored for growth. Final report to follow. 04/13/18 18:46 Blood Culture - Preliminary Peripheral Venipuncture Culture is incubating and being continuously monitored for growth. Final report to follow. Serology 04/14/18 04/13/18 Range/Units 17:38 19:11 Ur Specimen Adequacy See below A Urine Color Dark Yellow (Yellow) Urine Clarity Clear (Clear) Urine pH 6.5 (5.0-8.0) pH Units Ur Specific [place] 1.022 (1.010-1.025) Urine Protein 100 H (Neg-Trace) mg/dL Urine Glucose (UA) Normal (Normal) mg/dL Urine Ketones Trace H (Negative) mg/dL Urine Blood Negative (Negative) Urine Nitrite Negative (Negative) Urine Bilirubin Small H (Negative) Urine Urobilinogen >=8.0 H (Normal) mg/dL Ur Leukocyte Esterase Small H (Negative) Urine Microscopic RBC 5-15 H (0-3) per hpf Urine Microscopic WBC 5-15 H (0-3) per hpf Ur Squamous Epith Cells Many H (None-Few) per lpf Urine Bacteria Moderate H (None-Few) per hpf Hyaline Casts None Seen (None-Few) per lpf Ur Culture Indicated? NO. A (NO) Chlamy pneumoniae PCR Not Detected (Not Detect) Adenovirus (PCR) Not Detected (Not Detect) B. pertussis DNA (PCR) Not Detected (Not Detect) B.parapertussis DNA PCR Not Detected (Not Detect) Coronavirus OC43 (PCR) Not Detected (Not Detect) Coronavirus HKU1 (PCR) Not Detected (Not Detect) Coronavirus 229E (PCR) Not Detected (Not Detect) Coronavirus NL63 (PCR) Not Detected (Not Detect) Human Metapneumovir PCR Not Detected (Not Detect) Influenza A (H1) PCR Not Detected (Not Detect) Influ A (H1N1/09) PCR Not Detected (Not Detect) Influenza A (H3) PCR Not Detected (Not Detect) Influenza A Untype (PCR) Not Detected (Not Detect) Influenza Type B (PCR) Not Detected (Not Detect) M.pneumoniae DNA (PCR) Not Detected (Not Detect) Parainfluenza 1 (PCR) Not Detected (Not Detect) Parainfluenza 2 (PCR) Not Detected (Not Detect) Parainfluenza 3 (PCR) Not Detected (Not Detect) Parainfluenza 4 (PCR) Not Detected (Not Detect) RSV (PCR) Not Detected (Not Detect) Entero/Rhino (PCR) Not Detected (Not Detect) Exam - Constitutional Vitals: Temp Pulse Resp BP Pulse Ox 98.4 F 94 16 104/66 98 04/15/18 10:40 04/15/18 10:29 04/15/18 10:29 04/15/18 10:29 04/15/18 10:29 General appearance: average body habitus, cooperative, no acute distress - Head Head exam: Present: atraumatic, normal inspection, normocephalic - Eye Eye exam: Present: EOMI, normal appearance, PERRL Pupils: Present: normal accommodation - ENT ENT exam: Present: mucous membranes moist - Neck Neck exam: Present: normal inspection - Respiratory Respiratory exam: Present: CTAB. Absent: rales, respiratory distress, rhonchi, wheezes - Cardiovascular Cardiovascular exam: Present: RRR, +S1, +S2 - GI/Abdominal GI/Abdominal exam: Present: normal bowel sounds, soft. Absent: distended, tenderness - Extremities Exam Extremities exam: Present: normal inspection. Absent: joint swelling, pedal edema, tenderness - Back Exam Back exam: Present: normal inspection. Absent: paraspinal tenderness, vertebral tenderness - Neurological Exam Neurological exam: Present: alert, oriented X3, no focal deficits - Psychiatric Psychiatric exam: Present: normal affect, normal mood - Skin Skin exam: Present: dry, intact, normal color, warm - Additional findings Additional findings: A port noted to the right upper chest, currently accessed with a 19-gauge Melissa needle. Dressing is clean, dry, and intact. No erythema, warmth, tenderness, or drainage noted at the insertion site. Consult Discharge Plan - Plan Referrals: Hanh Pittman, HANDWRITING EXPERT [Primary Care Provider] - - Attending Attestation I examined this patient and my medical decision-making was reviewed with the Resident Physician. I agree with the documented findings, disposition and treatment plan as described except to the extent set forth below. When I evaluated the patient today, was at bedside. He tells me that he had upper respiratory infection with sinus pressure and runny nose and sore throat Friday prior to admission. He was wondering if that had anything to do with the patient's symptoms. CT head chest and abdomen pelvis were all reviewed. No signs of active infection. Currently patient continues to be on vancomycin and Zosyn but her fever curve significantly improved. Requested differential on the WBC from today which is still pending. Continue neutropenic precautions Consider de-escalating antibiotics to levofloxacin alone if fever curve continues to improve. Discussed if the patient wants to be transferred to wear her heme/onc Dr. wilder but she stated that she does not want to. Off note there was some redness above her port yesterday but apparently they gave her shower and they put a tape on it to cover from water and that is when the redness was coming from. Today I did not appreciate any redness that was t racking or any signs of infection. At this point I still do not have an obvious source of infection or any infection and my if her initial still viral syndrome high on my differential..
[2018-04-15] MEDS: Piperacillin/Tazobactam 3.375 GM in 0.9 % Sodium Chloride Mini Bag 100 ML IVPB SCH ×3 (10:52→23:50)
[2018-04-15] MEDS ORDERED: Isovue-370 500 ML INFUS..BTL IV ONE (10:54)
[2018-04-15 12:34] LABS: BUN/Creatinine Ratio 23 (6-26); Blood Urea Nitrogen 10 mg/dL (6-20); Calcium 8.7 mg/dL (8.6-10.3); Carbon Dioxide 23 mEq/L (23-29); Chloride 103 mEq/L (98-107); Glucose 253 mg/dL (70-105); Osmolality,Calculated 288 (280-300); Potassium 3.4 mEq/L (3.5-5.1); Sodium 135 mEq/L (136-145); eGFR For Non-African Americans > 60 (> 60)
--- NOTE | 2018-04-15 14:09 | Oncology Inp Consult Note ---
<Elida Thakkar L - Last Filed: 04/15/18 17:19> Date of Encounter: 04/15/18 Time of Encounter: 14:04 Assessment and Plan (1) Breast cancer Status: Acute Assessment and plan: Refer to history of present illness for full treatment summary Following progression noted on most recent imaging from 04/03/18 while on carboplatin, treat04/10/18: C1D1 Carboplatin/Gemcitabine Admitted with fever and sepsis of unknown etiology, now with neutropenia as de tailed below, ID following Plan: I have asked lab to add differential to CBC today, suspect ANC <500 with WBC 0.6 today Recommend Neupogen daily until ANC >1.0 Repeat UA with culture, check blood culture from [facility] Continue Vanc/Zosyn Monitor fever trend, if fever trend worsens recommend adding antifungal coverage We discussed above plan with patient as well as her treating oncologist Dr. Luo Patient is declining transfer at this time and this is ok from an oncology standpoint Continue with infectious treatment and supportive management as above She will follow up with Dr. Luo as an outpatient for further oncology treatment recommendations following resolution of her acute issues Qualifiers: Breast location: unspecified site of breast Estrogen receptor status: unspecified Patient sex: female Laterality: left Qualified Code(s): C50.912 - Malignant neoplasm of unspecified site of left female breast (2) Sepsis Status: Acute Assessment and plan: Management her ID, appreciate recommendations Etiology remains unclear She appears to be clinically improving, fever curve improved with MAXIMUM TEMPERATURE 100.5 overnight Blood cultures drawn on 04/13/2018 show no growth to date 2 Chest x-ray reveals no acute process Respiratory PCR unrevealing UA on admission appears contaminated, no culture was reported ID note reviewed and noted recommendations for a CT of the head, chest, abdomen and pelvis, along with recommendation to transfer to [facility] She is continuing on vancomycin and Zosyn IV Qualifiers: Sepsis type: sepsis due to unspecified organism Qualified Code(s): A41.9 - Sepsis, unspecified organism - Data of Consult Patient: known to practice within the last 3 years Consult date: 04/15/18 Requesting Physician: Aleshia Figueroa MD Primary Care Provider: Hanh Pittman CNP - Consult Narrative Reason for consult: left breast invasive ductal carcinoma History of present illness: Ms. Urban is a 52 year old female patient of Dr. Luo [facility]. Treatment summary per Dr. Luo's note as detailed below. In brief, she was diagnosed with left breast invasive ductal carcinoma, ER <1%, IA <1%, HER 2 IHC: 1+, following diagnostic bilateral mammogram on 07/24/2017. Clinical stage IIIC - clinical T3, clinical N3b (internal mammary). She underwent ddAC C1-C4 08/15/17 - 09/26/17, followed by C1-C4 ddTaxol 10/10/17 - 11/21/17, followed by modified radical mastectomy on 12/23/2017, pathology results as below. She underwent CT chest for restaging on 01/16/2018 which noted an enlargement of 2 adjacent upper left internal mammary lymph nodes, new mediastinal enlarged lymph nodes,new as well as interval increase in size and number of left sub-pectoral lymph nodes. She began left chest wall/ej radiotherapy with Xeloda on 02/03/2018, this was subsequently changed on 03/02/2018 to carboplatin due to clinical progression. Most recently on 04/03/[address] of the chest abdomen and pelvis which noted a modest reduction in the sites of mediastinal, internal mammary, supraclavicular and in for pectoral nodes however did note new hepatic metastasis at least 5 with the largest measuring greater than 2 cm as well as intra-abdominal adenopathy. She began cycle 1 day 1 of carboplatin/gemcitabine on 04/10/2018. Ms. Urban presented to [facility] ER on 04/13/2018 with a three-day history of fever, nausea, and vomiting congestion. Upon arrival, the patient was febrile with a temperature of 103.1. She was tachycardic. Laboratory studies revealed leukopenia with an ANC of 1700. Blood cultures were obtained 2 sets. UA appears contaminated. Chest x-ray was negative. She was started on empiric IV antibiotics. ID was consulted. Patient reports that her fevers actually began on 04/09/18. She did receive her chemotherapy on 04/10/18, but was afebrile that day. sagrario again began that evening after getting chemotherapy. She also reported an episode of nausea with vomiting yesterday prior to presentation. She reports some nasal congestion with green drainage and cough. A-port is of normal assessment. Treatment summary -07/24/17: Diagnostic bilateral mammogram that showed: ~5.2 x 4.8 cm left breast mass in the retroareolar breast. An ultrasound done that same day revealed: a 5.9 x 6.6 x 4.2 cm lobulated hypoechoic mass in the left retro areolar space. There is also a 2.8 x 1.9 x 2.2 cm enlarged lymph node. 07/28/17: Left Breast and Axillary LN ultrasound-guided biopsy with clip placement Grade 2, Invasive Ductal Carcinoma Ln: metastatic carcinoma c/w breast primary ER <1%, IA <1%, HER 2 IHC: 1+ -08/08/17: Imaging of the Right breast repeated today due to obscurity and lack of clarity on outside imaging. This was done per Surgical Oncology. -08/13/17: Staging CT C/A/P with known L breast mass, enlarged left axillary/subpectoral and left internal mammary (up to 2.5cm) chain. No pulmonary, abd/pelvis, or bony lesions. -->Bone scan negative for osseous mets Clinical stage IIIC - clinical T3, clinical N3b (internal mammary) -08/15/17 - 09/26/17: C1-C4 ddAC -10/10/17 - 11/21/17: C1-C4 ddTaxol -12/23/17: Modified radical mastecomy. Pathology:Significant residual IDC, 6.6cm, LVI present. Margins neg. 11/17 nodes involved with cancer (2.8cm largest), plus 1 micromet and 2 with isolated tumor cells. RCB-III. Final stating ypT3/ypN2a -01/16/18: CT Chest re-staging. Interval enlargement of two adjacent upper left internal mammary lymph nodes one of which is necrotic, collectively measure 3.7 x 2.8cm (from 2.5 x 1.8 cm). New upper mediastinal enlarged lymph nodes such as 2.7 x 2.3 cm perivascular lymph node. Interval increase in size and number of left subpectoral lymph nodes, e.g. 3.2 x 2.8 cm with central necrosis (from 1.0 x 0.8 cm), multiple new enlarged subpectoral lymph nodes, such as 2.5 x 1.7 cm, 2.3 x 1.3 cm. New left supraclavicular lymph nodes, such as 1.5 x 1 4 cm centrally necrotic lymph node. CT A/P without evidence of distant disease -02/03/18: Started L chest wall/ej irradiation with xeloda 500mg twice daily -02/23/18: Xeloda increased to 1000mg twice daily concurrent with radiation due to progression -03/02/18: Xeloda changed to carboplatin AUC=2 weekly due to clinical progression -03/09/18: Carboplatin AUC=2 weekly -03/16/18: Carboplatin AUC=2 weekly planned -04/03/18: CT C/A/P with modest reduction in size of mediastinal, internal mammary, supraclavicular, and infrapectoral nodes. New liver mets (at least 5, largest >2cm) as well as intra-abdominal adenopathy -04/10/18: C1D1 Carboplatin/gemcitabine Past Med Surg Social Fam HX - Past Medical History Medical history: diabetes, hyperlipidemia Psychiatric history: anxiety - Past Surgical History Surgical History: - Social History Smoking Status: Never smoker Smokeless Tobacco Status: No Alcohol use: none Drug use: none Medications and Allergies Atorvastatin Calcium [Lipitor] 20 mg PO DAILY 05/10/16 [History] Glimepiride [Amaryl] 1 mg PO DAILY 05/10/16 [History] Sertraline [Zoloft] 100 mg PO DAILY 05/10/16 [History] Alogliptin Juvencio/Metformin HCl [Alogliptin-Metformin 12.5-500] 1 tab PO BID 04/13/18 [History] Allergy/AdvReac Type Severity Reaction Status Date / Time No Known Allergies Allergy Verified 05/10/16 08:44 Constitutional: Present: anorexia, chills, fatigue, fever(s). Absent: frequent falls, headache(s), weakness, weight loss Eyes: Absent: blurry vision Nose, mouth and throat: Present: nasal congestion. Absent: dysphagia, odynophagia Breasts: Absent: pain Cardiovascular: Absent: chest pain, palpitations Respiratory: Present: cough. Absent: dyspnea Gastrointestinal: Absent: abdominal pain, change in bowel habits, diarrhea, hematochezia, melena, nausea, vomiting Genitourinary: Absent: dysuria Musculoskeletal: Present: muscle weakness Integumentary: Absent: rash, wounds Neurological: Absent: focal weakness, frequent falls Hematologic/Lymphatic: Present: as per HPI Oncology - Exam - Constitutional Vitals: Temp Pulse Resp BP Pulse Ox 98.4 F 94 16 104/66 98 04/15/18 10:40 04/15/18 10:29 04/15/18 10:29 04/15/18 10:29 04/15/18 10:29 General appearance: cooperative, no acute distress, no febrile - Head Head exam: Present: atraumatic - ENT ENT exam: Present: mucous membranes moist - Respiratory Respiratory exam: Present: CTAB. Absent: respiratory distress - Cardiovascular Cardiovascular exam: Present: RRR, +S1, +S2 - GI/Abdominal GI/Abdominal exam: Present: normal bowel sounds, soft. Absent: guarding, rebound, tenderness - Extremities Exam Extremities exam: Present: normal inspection. Absent: calf tenderness - Neurological Exam Neurological exam: Present: alert, oriented X3, no focal deficits, strengths equal and symetr throughout - Psychiatric Psychiatric exam: Present: normal affect, normal mood - Skin Skin exam: Present: dry, intact, normal color, warm Consult Discharge Plan - Plan Referrals: Hanh Pittman CNP [Primary Care Provider] - <Mello Fagan - Last Filed: 04/15/18 17:42> Date of Encounter: 04/15/18 - Data of Consult Requesting Physician: Aleshia Figueroa MD Primary Care Provider: Hanh Pittman CNP - Consult Narrative History of present illness: Ms. Urban is a 52 year old female Oncology - Exam - Constitutional Vitals: Temp Pulse Resp BP Pulse Ox 99.7 F H 91 15 116/75 100 04/15/18 16:12 04/15/18 16:12 04/15/18 16:12 04/15/18 16:12 04/15/18 16:12 Oncology - Results Labs: 04/15/18 04/15/18 04/15/18 16:55 15:49 15:32 WBC 0.7 L* RBC 2.76 L Hgb 6.8 L Hct 21.8 L MCV 79.0 L MCH 24.6 L MCHC 31.2 L RDW 21.8 H Plt Count 204 MPV 8.3 L Immature Gran % 1.5 Seg Neutrophils % 49.3 Lymphocytes % 33.8 Monocytes % 10.8 Eosinophils % 3.1 Basophils % 1.5 Neutrophils # 0.4 L Lymphocytes # 0.2 L Monocytes # 0.1 Eosinophils # 0.0 Basophils # 0.0 Platelet Estimate Anisocytosis Microcytosis PT INR APTT Sodium Potassium Chloride Carbon Dioxide BUN Creatinine Est GFR ( Amer) Est GFR (Non-Af Amer) BUN/Creatinine Ratio Glucose POC Glucose Calculated Osmolality Lactic Acid Calcium Phosphorus Magnesium Total Bilirubin Direct Bilirubin Indirect Bilirubin AST ALT Alkaline Phosphatase Troponin I Serum Total Protein Albumin Globulin Albumin/Globulin Ratio Amylase 242 H Lipase 195 H Ur Specimen Adequacy Urine Color Yellow Urine Clarity Clear Urine pH 7.0 Ur Specific [place] > 1.030 H Urine Protein Negative Urine Glucose (UA) Normal Urine Ketones Negative Urine Blood Negative Urine Nitrite Negative Urine Bilirubin Negative Urine Urobilinogen 4.0 H Ur Leukocyte Esterase Negative Urine Microscopic RBC Urine Microscopic WBC Ur Squamous Epith Cells Urine Bacteria Hyaline Casts Ur Culture Indicated? Chlamy pneumoniae PCR Adenovirus (PCR) B. pertussis DNA (PCR) B.parapertussis DNA PCR Coronavirus OC43 (PCR) Coronavirus HKU1 (PCR) Coronavirus 229E (PCR) Coronavirus NL63 (PCR) Human Metapneumovir PCR Influenza A (H1) PCR Influ A (H1N1/09) PCR Influenza A (H3) PCR Influenza A Untype (PCR) Influenza Type B (PCR) M.pneumoniae DNA (PCR) Parainfluenza 1 (PCR) Parainfluenza 2 (PCR) Parainfluenza 3 (PCR) Parainfluenza 4 (PCR) RSV (PCR) Entero/Rhino (PCR) Specimen Rejected Blood Type Antibody Screen Crossmatch 04/15/18 04/15/18 04/15/18 11:22 11:15 04:15 WBC 0.6 L* D RBC 2.74 L Hgb 6.8 L Hct 21.6 L MCV 78.8 L MCH 24.8 L MCHC 31.5 L RDW 21.8 H Plt Count 213 MPV 8.5 L Immature Gran % Seg Neutrophils % Lymphocytes % Monocytes % Eosinophils % Basophils % Neutrophils # Lymphocytes # Monocytes # Eosinophils # Basophils # Platelet Estimate Anisocytosis Microcytosis PT INR APTT Sodium 135 L Potassium 3.4 L Chloride 103 Carbon Dioxide 23 BUN 10 Creatinine 0.44 L Est GFR ( Amer) > 60 Est GFR (Non-Af Amer) > 60 BUN/Creatinine Ratio 23 Glucose 253 H POC Glucose 251 H Calculated Osmolality 288 Lactic Acid Calcium 8.7 Phosphorus Magnesium Total Bilirubin Direct Bilirubin Indirect Bilirubin AST ALT Alkaline Phosphatase Troponin I Serum Total Protein Albumin Globulin Albumin/Globulin Ratio Amylase Lipase Ur Specimen Adequacy Urine Color Urine Clarity Urine pH Ur Specific [place] Urine Protein Urine Glucose (UA) Urine Ketones Urine Blood Urine Nitrite Urine Bilirubin Urine Urobilinogen Ur Leukocyte Esterase Urine Microscopic RBC Urine Microscopic WBC Ur Squamous Epith Cells Urine Bacteria Hyaline Casts Ur Culture Indicated? Chlamy pneumoniae PCR Adenovirus (PCR) B. pertussis DNA (PCR) B.parapertussis DNA PCR Coronavirus OC43 (PCR) Coronavirus HKU1 (PCR) Coronavirus 229E (PCR) Coronavirus NL63 (PCR) Human Metapneumovir PCR Influenza A (H1) PCR Influ A (H1N1/09) PCR Influenza A (H3) PCR Influenza A Untype (PCR) Influenza Type B (PCR) M.pneumoniae DNA (PCR) Parainfluenza 1 (PCR) Parainfluenza 2 (PCR) Parainfluenza 3 (PCR) Parainfluenza 4 (PCR) RSV (PCR) Entero/Rhino (PCR) Specimen Rejected Blood Type Antibody Screen Crossmatch 04/15/18 04/14/18 04/14/18 03:50 20:15 17:38 WBC RBC Hgb Hct MCV MCH MCHC RDW Plt Count MPV Immature Gran % Seg Neutrophils % Lymphocytes % Monocytes % Eosinophils % Basophils % Neutrophils # Lymphocytes # Monocytes # Eosinophils # Basophils # Platelet Estimate Anisocytosis Microcytosis PT INR APTT Sodium Potassium Chloride Carbon Dioxide BUN Creatinine Est GFR ( Amer) Est GFR (Non-Af Amer) BUN/Creatinine Ratio Glucose POC Glucose 250 H Calculated Osmolality Lactic Acid Calcium Phosphorus Magnesium Total Bilirubin Direct Bilirubin Indirect Bilirubin AST ALT Alkaline Phosphatase Troponin I Serum Total Protein Albumin Globulin Albumin/Globulin Ratio Amylase Lipase Ur Specimen Adequacy Urine Color Urine Clarity Urine pH Ur Specific [place] Urine Protein Urine Glucose (UA) Urine Ketones Urine Blood Urine Nitrite Urine Bilirubin Urine Urobilinogen Ur Leukocyte Esterase Urine Microscopic RBC Urine Microscopic WBC Ur Squamous Epith Cells Urine Bacteria Hyaline Casts Ur Culture Indicated? Chlamy pneumoniae PCR Not Detected Adenovirus (PCR) Not Detected B. pertussis DNA (PCR) Not Detected B.parapertussis DNA PCR Not Detected Coronavirus OC43 (PCR) Not Detected Coronavirus HKU1 (PCR) Not Detected Coronavirus 229E (PCR) Not Detected Coronavirus NL63 (PCR) Not Detected Human Metapneumovir PCR Not Detected Influenza A (H1) PCR Not Detected Influ A (H1N1/09) PCR Not Detected Influenza A (H3) PCR Not Detected Influenza A Untype (PCR) Not Detected Influenza Type B (PCR) Not Detected M.pneumoniae DNA (PCR) Not Detected Parainfluenza 1 (PCR) Not Detected Parainfluenza 2 (PCR) Not Detected Parainfluenza 3 (PCR) Not Detected Parainfluenza 4 (PCR) Not Detected RSV (PCR) Not Detected Entero/Rhino (PCR) Not Detected Specimen Rejected Miscellaneous Blood Type Antibody Screen Crossmatch 04/14/18 04/14/18 04/14/18 16:13 11:46 07:33 WBC RBC Hgb Hct MCV MCH MCHC RDW Plt Count MPV Immature Gran % Seg Neutrophils % Lymphocytes % Monocytes % Eosinophils % Basophils % Neutrophils # Lymphocytes # Monocytes # Eosinophils # Basophils # Platelet Estimate Anisocytosis Microcytosis PT INR APTT Sodium Potassium Chloride Carbon Dioxide BUN Creatinine Est GFR ( Amer) Est GFR (Non-Af Amer) BUN/Creatinine Ratio Glucose POC Glucose 150 H 124 H 142 H Calculated Osmolality Lactic Acid Calcium Phosphorus Magnesium Total Bilirubin Direct Bilirubin Indirect Bilirubin AST ALT Alkaline Phosphatase Troponin I Serum Total Protein Albumin Globulin Albumin/Globulin Ratio Amylase Lipase Ur Specimen Adequacy Urine Color Urine Clarity Urine pH Ur Specific [place] Urine Protein Urine Glucose (UA) Urine Ketones Urine Blood Urine Nitrite Urine Bilirubin Urine Urobilinogen Ur Leukocyte Esterase Urine Microscopic RBC Urine Microscopic WBC Ur Squamous Epith Cells Urine Bacteria Hyaline Casts Ur Culture Indicated? Chlamy pneumoniae PCR Adenovirus (PCR) B. pertussis DNA (PCR) B.parapertussis DNA PCR Coronavirus OC43 (PCR) Coronavirus HKU1 (PCR) Coronavirus 229E (PCR) Coronavirus NL63 (PCR) Human Metapneumovir PCR Influenza A (H1) PCR Influ A (H1N1/09) PCR Influenza A (H3) PCR Influenza A Untype (PCR) Influenza Type B (PCR) M.pneumoniae DNA (PCR) Parainfluenza 1 (PCR) Parainfluenza 2 (PCR) Parainfluenza 3 (PCR) Parainfluenza 4 (PCR) RSV (PCR) Entero/Rhino (PCR) Specimen Rejected Blood Type Antibody Screen Crossmatch 04/14/18 04/14/18 04/14/18 06:00 06:00 06:00 WBC 1.6 L RBC 2.85 L Hgb 7.1 L Hct 22.7 L MCV 79.6 L MCH 24.9 L MCHC 31.3 L RDW 21.9 H Plt Count 238 MPV 8.9 L Immature Gran % 0.0 Seg Neutrophils % 83.0 Lymphocytes % 12.0 Monocytes % 2.5 Eosinophils % 1.9 Basophils % 0.6 Neutrophils # 1.3 L Lymphocytes # 0.2 L Monocytes # 0.0 Eosinophils # 0.0 Basophils # 0.0 Platelet Estimate Normal Anisocytosis 2+ A Microcytosis Present A PT 15.3 H INR 1.4 APTT Sodium 138 Potassium 3.8 Chloride 108 H Carbon Dioxide 22 L BUN 12 Creatinine 0.41 L Est GFR ( Amer) > 60 Est GFR (Non-Af Amer) > 60 BUN/Creatinine Ratio 29 H Glucose 130 H POC Glucose Calculated Osmolality 288 Lactic Acid Calcium 8.1 L Phosphorus Magnesium 1.6 Total Bilirubin 0.8 Direct Bilirubin Indirect Bilirubin AST 60 H ALT 42 Alkaline Phosphatase 97 Troponin I Serum Total Protein 6.4 Albumin 2.7 L Globulin 3.7 H Albumin/Globulin Ratio 0.7 L Amylase Lipase Ur Specimen Adequacy Urine Color Urine Clarity Urine pH Ur Specific [place] Urine Protein Urine Glucose (UA) Urine Ketones Urine Blood Urine Nitrite Urine Bilirubin Urine Urobilinogen Ur Leukocyte Esterase Urine Microscopic RBC Urine Microscopic WBC Ur Squamous Epith Cells Urine Bacteria Hyaline Casts Ur Culture Indicated? Chlamy pneumoniae PCR Adenovirus (PCR) B. pertussis DNA (PCR) B.parapertussis DNA PCR Coronavirus OC43 (PCR) Coronavirus HKU1 (PCR) Coronavirus 229E (PCR) Coronavirus NL63 (PCR) Human Metapneumovir PCR Influenza A (H1) PCR Influ A (H1N1/09) PCR Influenza A (H3) PCR Influenza A Untype (PCR) Influenza Type B (PCR) M.pneumoniae DNA (PCR) Parainfluenza 1 (PCR) Parainfluenza 2 (PCR) Parainfluenza 3 (PCR) Parainfluenza 4 (PCR) RSV (PCR) Entero/Rhino (PCR) Specimen Rejected Blood Type Antibody Screen Crossmatch 04/13/18 04/13/18 04/13/18 19:42 19:11 19:04 WBC RBC Hgb Hct MCV MCH MCHC RDW Plt Count MPV Immature Gran % Seg Neutrophils % Lymphocytes % Monocytes % Eosinophils % Basophils % Neutrophils # Lymphocytes # Monocytes # Eosinophils # Basophils # Platelet Estimate Anisocytosis Microcytosis PT INR APTT Sodium Potassium Chloride Carbon Dioxide BUN Creatinine Est GFR ( Amer) Est GFR (Non-Af Amer) BUN/Creatinine Ratio Glucose POC Glucose Calculated Osmolality Lactic Acid 0.5 Calcium Phosphorus Magnesium Total Bilirubin Direct Bilirubin Indirect Bilirubin AST ALT Alkaline Phosphatase Troponin I Serum Total Protein Albumin Globulin Albumin/Globulin Ratio Amylase Lipase Ur Specimen Adequacy See below A Urine Color Dark Yellow Urine Clarity Clear Urine pH 6.5 Ur Specific [place] 1.022 Urine Protein 100 H Urine Glucose (UA) Normal Urine Ketones Trace H Urine Blood Negative Urine Nitrite Negative Urine Bilirubin Small H Urine Urobilinogen >=8.0 H Ur Leukocyte Esterase Small H Urine Microscopic RBC 5-15 H Urine Microscopic WBC 5-15 H Ur Squamous Epith Cells Many H Urine Bacteria Moderate H Hyaline Casts None Seen Ur Culture Indicated? NO. A Chlamy pneumoniae PCR Adenovirus (PCR) B. pertussis DNA (PCR) B.parapertussis DNA PCR Coronavirus OC43 (PCR) Coronavirus HKU1 (PCR) Coronavirus 229E (PCR) Coronavirus NL63 (PCR) Human Metapneumovir PCR Influenza A (H1) PCR Influ A (H1N1/09) PCR Influenza A (H3) PCR Influenza A Untype (PCR) Influenza Type B (PCR) M.pneumoniae DNA (PCR) Parainfluenza 1 (PCR) Parainfluenza 2 (PCR) Parainfluenza 3 (PCR) Parainfluenza 4 (PCR) RSV (PCR) Entero/Rhino (PCR) Specimen Rejected Blood Type O POSITIVE Antibody Screen NEGATIVE Crossmatch See Detail 04/13/18 04/13/18 04/13/18 19:04 19:04 19:04 WBC 2.0 L RBC 2.88 L Hgb 7.1 L Hct 22.6 L MCV 78.5 L MCH 24.7 L MCHC 31.4 L RDW 22.9 H Plt Count 289 MPV 9.0 L Immature Gran % 0.5 Seg Neutrophils % 85.1 Lymphocytes % 10.9 Monocytes % 3.0 Eosinophils % 0.5 Basophils % 0.0 Neutrophils # 1.7 Lymphocytes # 0.2 L Monocytes # 0.1 Eosinophils # 0.0 Basophils # 0.0 Platelet Estimate Anisocytosis Microcytosis PT 17.0 H INR 1.5 APTT 33.2 Sodium 132 L Potassium 3.8 Chloride 100 Carbon Dioxide 23 BUN 16 Creatinine 0.58 L Est GFR ( Amer) > 60 Est GFR (Non-Af Amer) > 60 BUN/Creatinine Ratio 28 H Glucose 152 H POC Glucose Calculated Osmolality 278 L Lactic Acid Calcium 8.5 L Phosphorus 2.0 L Magnesium 1.5 L Total Bilirubin 1.1 H Direct Bilirubin 0.3 H Indirect Bilirubin 0.8 AST 84 H ALT 51 Alkaline Phosphatase 105 H Troponin I < 0.03 Serum Total Protein 7.3 Albumin 3.1 L Globulin 4.2 H Albumin/Globulin Ratio 0.7 L Amylase Lipase Ur Specimen Adequacy Urine Color Urine Clarity Urine pH Ur Specific [place] Urine Protein Urine Glucose (UA) Urine Ketones Urine Blood Urine Nitrite Urine Bilirubin Urine Urobilinogen Ur Leukocyte Esterase Urine Microscopic RBC Urine Microscopic WBC Ur Squamous Epith Cells Urine Bacteria Hyaline Casts Ur Culture Indicated? Chlamy pneumoniae PCR Adenovirus (PCR) B. pertussis DNA (PCR) B.parapertussis DNA PCR Coronavirus OC43 (PCR) Coronavirus HKU1 (PCR) Coronavirus 229E (PCR) Coronavirus NL63 (PCR) Human Metapneumovir PCR Influenza A (H1) PCR Influ A (H1N1/09) PCR Influenza A (H3) PCR Influenza A Untype (PCR) Influenza Type B (PCR) M.pneumoniae DNA (PCR) Parainfluenza 1 (PCR) Parainfluenza 2 (PCR) Parainfluenza 3 (PCR) Parainfluenza 4 (PCR) RSV (PCR) Entero/Rhino (PCR) Specimen Rejected Blood Type Antibody Screen Crossmatch Inpatient Charges Provider: Dr. Tiesha Fagan Consult - Inpatient: [id number] - Attending Attestation I examined this patient and my medical decision-making was reviewed with the Advanced Practice Nurse. I agree with the documented findings, disposition and treatment plan as described except to the extent set forth below. On Vanc/Zosyn Will add Neupogen 480 mcg SQ until ANC > 1000 Will order urine culture and U/A Spoke with her breast oncologist from [facility]; patient will f/u with him after discharge
--- NOTE | 2018-04-15 14:09 | Event Note ---
Date of Encounter: 04/15/18 Time of Encounter: 14:07 ID suggested patient to be transered to [facility] to her oncologist patient does not want to be transfered. just came back from ct scan and will like to wait and see what the results shows and prefers oncologists here to see her and discuss with her oncologist in [facility]
[2018-04-15 16:36] LABS: Basophils % 1.5 %; Immature Granulocytes % 1.5 % (0-4); Red Cell Distribution Width 21.8 % (11.5-14.5)
[2018-04-15 16:37] LABS: Eosinophils % 3.1 %; Hematocrit 21.8 % (35.3-44.9); Hemoglobin 6.8 g/dL (11.5-15.4); Lymphocytes # 0.2 K/mcL (0.6-4.6); Lymphocytes % 33.8 %; Mean Corpuscular HGB Conc 31.2 g/dL (31.6-35.5); Mean Corpuscular Hemoglobin 24.6 pg (28.0-33.3); Mean Platelet Volume 8.3 fL (9.4-12.4); Monocytes # 0.1 K/mcL (0.0-1.3); Monocytes % 10.8 %; Neutrophils # 0.4 K/mcL (1.6-8.9); Platelet Count 204 K/mcL (140-400); Red Blood Count 2.76 M/mcL (3.82-4.97); Segmented Neutrophils % 49.3 %
[2018-04-15 16:51] LABS: Amylase 242 Units/L (29-103); Lipase 195 Units/L (11-82)
[2018-04-15 17:24] LABS: Bilirubin,Urine Negative (Negative); Blood,Urine Negative (Negative); Clarity,Urine Clear (Clear); Color,Urine Yellow (Yellow); Glucose,Urine (UA) Normal (Normal); Ketones,Urine Negative (Negative); Leukocyte Esterase,Urine Negative (Negative); Nitrite,Urine Negative (Negative); Protein,Urine Negative (Neg-Trace); Specific Gravity,Urine > 1.030 (1.010-1.025)
[2018-04-16 03:46] LABS: Monocytes % 7.5 %
[2018-04-16 03:47] LABS: Eosinophils % 1.4 %; Hematocrit 21.1 % (35.3-44.9); Hemoglobin 6.6 g/dL (11.5-15.4); Immature Granulocytes % 0.7 % (0-4); Lymphocytes # 0.2 K/mcL (0.6-4.6); Lymphocytes % 15.8 %; Mean Corpuscular HGB Conc 31.3 g/dL (31.6-35.5); Mean Corpuscular Volume 79.9 fL (83.0-100.0); Monocytes # 0.1 K/mcL (0.0-1.3); Neutrophils # 1.1 K/mcL (1.6-8.9); Platelet Count 182 K/mcL (140-400); Red Blood Count 2.64 M/mcL (3.82-4.97); Red Cell Distribution Width 21.8 % (11.5-14.5); Segmented Neutrophils % 74.6 %
[2018-04-16 04:05] LABS: BUN/Creatinine Ratio 19 (6-26); Blood Urea Nitrogen 9 mg/dL (6-20); Calcium 8.9 mg/dL (8.6-10.3); Carbon Dioxide 24 mEq/L (23-29); Chloride 103 mEq/L (98-107); Glucose 125 mg/dL (70-105); Magnesium 1.3 mg/dL (1.6-2.6); Osmolality,Calculated 280 (280-300); Potassium 4.1 mEq/L (3.5-5.1); Sodium 135 mEq/L (136-145); eGFR For Non-African Americans > 60 (> 60)
[2018-04-16 04:18] LABS: Hypochromasia Present (Not Present); Platelet Estimate Normal (Normal)
[2018-04-16 04:19] LABS: Anisocytosis 2+ (Not Present)
--- NOTE | 2018-04-16 10:09 | Infectious Disease Progress No ---
Date of Encounter: 04/16/18 Time of Encounter: 10:07 - Assessment and Plan (1) Sepsis Current Visit: Yes Status: Acute The patient had three SIRS criteria on admission (leukopenia, fever, tachycardia). Etiology unclear: viral syndrome vs. chemotherapy vs. other. Improved clinically. Fever curve improved and tachycardia resolved. MAXIMUM TEMPERATURE 100.6 overnight. Blood cultures drawn 04/13/18 are NGTD x 2 sets. Recommendations: - Await cultures. - Check procalcitonin. - Discontinue Vanc and Zosyn. - Start Levaquin 750mg IV daily. - Duration of treatment depends on the clinical picture. Can transition to PO antibiotics when ready for discharge to complete a total of 10 days of antibiotics. - Monitor renal function and for drug toxicity and dose-adjust antibiotics. Qualifiers: Sepsis type: sepsis due to unspecified organism Qualified Code(s): A41.9 - Sepsis, unspecified organism (2) Neutropenia Current Visit: Yes Status: Acute Etiology: Unclear. Possible infection versus chemotherapy versus other. Improved. ANC [address] head, chest, abdomen, and pelvis non-revealing for source of infection. Tmax 100.5 overnight. Recommended transfer to [facility] for evaluation by her Hem/Onc team, but the patient declined. [facility] consulted and following. Qualifiers: Neutropenia type: unspecified Qualified Code(s): D70.9 - Neutropenia, unspecified (3) Nausea and vomiting Current Visit: Yes Status: Resolved Etiology unclear: viral syndrome vs. other. Resolved since admission. Qualifiers: Vomiting type: unspecified Vomiting Intractability: non-intractable Qualified Code(s): R11.2 - Nausea with vomiting, unspecified (4) Type 2 diabetes mellitus Current Visit: Yes Status: Chronic Qualifiers: Diabetes mellitus chcf insulin use: unspecified manager intermediate insulin use status Diabetes mellitus complication detail: with other oral complications Qualified Code(s): E11.638 - Type 2 diabetes mellitus with other oral complications (5) Breast cancer Current Visit: Yes Status: Acute Diagnosed July 2017. Follows with [facility]. Status post radical mastectomy 11/2017. Currently on Gemzar and Carboplatin, last dose 04/10/18. Consider conferring with patient's oncologist at [facility]. Qualifiers: Breast location: unspecified site of breast Estrogen receptor status: unspecified Patient sex: female Laterality: left Qualified Code(s): C50.912 - Malignant neoplasm of unspecified site of left female breast - Subjective Interval history: Patient seen and examined with family at the bedside. No acute events noted overnight. Patient states overall she feels well and is ready to go home. She denies any headache or neck pain. She should continue to report some nasal congestion and cough productive of clear sputum. She denies any dental pain, sore throat, or earache. She denies any fevers or chills or rigors. She denies any chest pain or shortness of breath. She denies any nausea, vomiting, d iarrhea, constipation. She denies abdominal pain or urinary complaints. She denies any back, joint, or extremity pain. She denies any oral thrush or new skin lesions. Infect Dis PN-Objective Data - Labs CBC & Chem 7: 04/16/18 03:33 04/16/18 03:33 Labs: Laboratory Results - last 24 hr 04/15/18 04/15/18 04/15/18 07:17 11:15 11:22 WBC RBC Hgb Hct MCV MCH MCHC RDW Plt Count MPV Immature Gran % Seg Neutrophils % Lymphocytes % Monocytes % Eosinophils % Basophils % Neutrophils # Lymphocytes # Monocytes # Eosinophils # Basophils # Platelet Estimate Hypochromasia Anisocytosis Sodium 135 L Potassium 3.4 L Chloride 103 Carbon Dioxide 23 BUN 10 Creatinine 0.44 L Est GFR ( Amer) > 60 Est GFR (Non-Af Amer) > 60 BUN/Creatinine Ratio 23 Glucose 253 H POC Glucose 113 H 251 H Calculated Osmolality 288 Calcium 8.7 Magnesium Amylase Lipase Urine Color Urine Clarity Urine pH Ur Specific Black[place] Urine Protein Urine Glucose (UA) Urine Ketones Urine Blood Urine Nitrite Urine Bilirubin Urine Urobilinogen Ur Leukocyte Esterase 04/15/18 04/15/18 04/15/18 15:32 15:49 16:55 WBC 0.7 L* RBC 2.76 L Hgb 6.8 L Hct 21.8 L MCV 79.0 L MCH 24.6 L MCHC 31.2 L RDW 21.8 H Plt Count 204 MPV 8.3 L Immature Gran % 1.5 Seg Neutrophils % 49.3 Lymphocytes % 33.8 Monocytes % 10.8 Eosinophils % 3.1 Basophils % 1.5 Neutrophils # 0.4 L Lymphocytes # 0.2 L Monocytes # 0.1 Eosinophils # 0.0 Basophils # 0.0 Platelet Estimate Hypochromasia Anisocytosis Sodium Potassium Chloride Carbon Dioxide BUN Creatinine Est GFR ( Amer) Est GFR (Non-Af Amer) BUN/Creatinine Ratio Glucose POC Glucose Calculated Osmolality Calcium Magnesium Amylase 242 H Lipase 195 H Urine Color Yellow Urine Clarity Clear Urine pH 7.0 Ur Specific [place] > 1.030 H Urine Protein Negative Urine Glucose (UA) Normal Urine Ketones Negative Urine Blood Negative Urine Nitrite Negative Urine Bilirubin Negative Urine Urobilinogen 4.0 H Ur Leukocyte Esterase Negative 04/15/18 04/16/18 04/16/18 20:10 03:33 03:33 WBC 1.5 L D RBC 2.64 L Hgb 6.6 L Hct 21.1 L MCV 79.9 L MCH 25.0 L MCHC 31.3 L RDW 21.8 H Plt Count 182 MPV 9.0 L Immature Gran % 0.7 Seg Neutrophils % 74.6 Lymphocytes % 15.8 Monocytes % 7.5 Eosinophils % 1.4 Basophils % 0.0 Neutrophils # 1.1 L Lymphocytes # 0.2 L Monocytes # 0.1 Eosinophils # 0.0 Basophils # 0.0 Platelet Estimate Normal Hypochromasia Present A Anisocytosis 2+ A Sodium 135 L Potassium 4.1 Chloride 103 Carbon Dioxide 24 BUN 9 Creatinine 0.47 L Est GFR ( Amer) > 60 Est GFR (Non-Af Amer) > 60 BUN/Creatinine Ratio 19 Glucose 125 H POC Glucose 298 H Calculated Osmolality 280 Calcium 8.9 Magnesium 1.3 L Amylase Lipase Urine Color Urine Clarity Urine pH Ur Specific [place] Urine Protein Urine Glucose (UA) Urine Ketones Urine Blood Urine Nitrite Urine Bilirubin Urine Urobilinogen Ur Leukocyte Esterase 04/16/18 07:26 WBC RBC Hgb Hct MCV MCH MCHC RDW Plt Count MPV Immature Gran % Seg Neutrophils % Lymphocytes % Monocytes % Eosinophils % Basophils % Neutrophils # Lymphocytes # Monocytes # Eosinophils # Basophils # Platelet Estimate Hypochromasia Anisocytosis Sodium Potassium Chloride Carbon Dioxide BUN Creatinine Est GFR ( Amer) Est GFR (Non-Af Amer) BUN/Creatinine Ratio Glucose POC Glucose 132 H Calculated Osmolality Calcium Magnesium Amylase Lipase Urine Color Urine Clarity Urine pH Ur Specific [place] Urine Protein Urine Glucose (UA) Urine Ketones Urine Blood Urine Nitrite Urine Bilirubin Urine Urobilinogen Ur Leukocyte Esterase Cultures: Cultures 04/15/18 17:00 Legionella Antigen - Final Urine,Clean Catch Streptococcus pneumoniae Antigen (M - Final 04/15/18 16:13 Blood Culture - Preliminary Port System Culture is incubating and being continuously monitored for growth. Final report to follow. 04/13/18 19:04 Blood Culture - Preliminary Peripheral Venipuncture Culture is incubating and being continuously monitored for growth. Final report to follow. 04/13/18 18:46 Blood Culture - Preliminary Peripheral Venipuncture Culture is incubating and being continuously monitored for growth. Final report to follow. Serology 04/15/18 04/14/18 04/13/18 Range/Units 16:55 17:38 19:11 Ur Specimen Adequacy See below A Urine Color Yellow Dark Yellow (Yellow) Urine Clarity Clear Clear (Clear) Urine pH 7.0 6.5 (5.0-8.0) pH Units Ur Specific [place] > 1.030 H 1.022 (1.010-1.025) Urine Protein Negative 100 H (Neg-Trace) mg/dL Urine Glucose (UA) Normal Normal (Normal) mg/dL Urine Ketones Negative Trace H (Negative) mg/dL Urine Blood Negative Negative (Negative) Urine Nitrite Negative Negative (Negative) Urine Bilirubin Negative Small H (Negative) Urine Urobilinogen 4.0 H >=8.0 H (Normal) mg/dL Ur Leukocyte Esterase Negative Small H (Negative) Urine Microscopic RBC 5-15 H (0-3) per hpf Urine Microscopic WBC 5-15 H (0-3) per hpf Ur Squamous Epith Cells Many H (None-Few) per lpf Urine Bacteria Moderate H (None-Few) per hpf Hyaline Casts None Seen (None-Few) per lpf Ur Culture Indicated? NO. A (NO) Chlamy pneumoniae PCR Not Detected (Not Detect) Adenovirus (PCR) Not Detected (Not Detect) B. pertussis DNA (PCR) Not Detected (Not Detect) B.parapertussis DNA PCR Not Detected (Not Detect) Coronavirus OC43 (PCR) Not Detected (Not Detect) Coronavirus HKU1 (PCR) Not Detected (Not Detect) Coronavirus 229E (PCR) Not Detected (Not Detect) Coronavirus NL63 (PCR) Not Detected (Not Detect) Human Metapneumovir PCR Not Detected (Not Detect) Influenza A (H1) PCR Not Detected (Not Detect) Influ A (H1N1/09) PCR Not Detected (Not Detect) Influenza A (H3) PCR Not Detected (Not Detect) Influenza A Untype (PCR) Not Detected (Not Detect) Influenza Type B (PCR) Not Detected (Not Detect) M.pneumoniae DNA (PCR) Not Detected (Not Detect) Parainfluenza 1 (PCR) Not Detected (Not Detect) Parainfluenza 2 (PCR) Not Detected (Not Detect) Parainfluenza 3 (PCR) Not Detected (Not Detect) Parainfluenza 4 (PCR) Not Detected (Not Detect) RSV (PCR) Not Detected (Not Detect) Entero/Rhino (PCR) Not Detected (Not Detect) - Impressions Impressions Abdomen/Pelvis CT 04/15/18 13:30 IMPRESSION: 1. Status post left mastectomy likely related to breast cancer. There is evidence of left axillary and left pectoral masses, likely representing malignant lymphadenopathy. 2. Multiple liver lesions likely representing metastatic disease. 3. Large stephanie hepatis mass likely representing malignant lymphadenopathy. 4. Significant retroperitoneal lymphadenopathy. D/ / 04/15/2018 14:52:22 Cherelle Harris MD / honey Interpreting Provider: Cherelle Harris MD Chest CT 04/15/18 13:30 IMPRESSION: 1. Status post left mastectomy likely related to breast cancer. There is evidence of left axillary and left pectoral masses, likely representing malignant lymphadenopathy. 2. Multiple liver lesions likely representing metastatic disease. 3. Large stephanie hepatis mass likely representing malignant lymphadenopathy. 4. Significant retroperitoneal lymphadenopathy. D/ / 04/15/2018 14:52:22 Cherelle Harris MD / honey Interpreting Provider: Cherelle Harris MD Head CT 04/15/18 13:30 IMPRESSION: No acute intracranial abnormality. D/ / Cherelle Harris MD / Cherelle Harris MD Interpreting Provider: Cherelle Harris MD Exam - Constitutional Vitals: Temp Pulse Resp BP Pulse Ox 98.2 F 83 16 100/74 99 04/16/18 07:22 04/16/18 07:22 04/16/18 07:22 04/16/18 07:22 04/16/18 07:22 General appearance: average body habitus, cooperative, no acute distress - Head Head exam: Present: atraumatic, normal inspection, normocephalic - Eye Eye exam: Present: EOMI, normal appearance, PERRL Pupils: Present: normal accommodation - ENT ENT exam: Present: mucous membranes moist - Neck Neck exam: Present: normal inspection - Respiratory Respiratory exam: Present: CTAB. Absent: rales, respiratory distress, wheezes - Cardiovascular Cardiovascular exam: Present: RRR, +S1, +S2 - GI/Abdominal GI/Abdominal exam: Present: normal bowel sounds, soft. Absent: distended, tenderness - Extremities Exam Extremities exam: Present: normal inspection. Absent: joint swelling, pedal edema, tenderness - Back Exam Back exam: Present: normal inspection. Absent: paraspinal tenderness, vertebral tenderness - Neurological Exam Neurological exam: Present: alert, oriented X3, no focal deficits - Psychiatric Psychiatric exam: Present: normal affect, normal mood - Skin Skin exam: Present: dry, intact, normal color, warm - Additional findings Additional findings: A-port noted to the right upper chest with transparent dressing C/D/I. Consult Discharge Plan - Plan Referrals: Hanh Pittman, [employer] [Primary Care Provider] - - Attending Attestation I examined this patient and my medical decision-making was reviewed with the Resident Physician. I agree with the documented findings, disposition and treatment plan as described except to the extent set forth below.
[2018-04-16] MEDS: Insulin LISPRO 300 UNITS/3 ML VIAL SQ SCH ×3 (10:11→16:18)
--- NOTE | 2018-04-16 11:08 | Internal Med Progress Note ---
Hospitalist Progress Note - Encounter Date of Encounter: 04/16/18 Time of Encounter: 11:06 - Subjective Interval History: Patient with history of metastatic breast cancer to liver on chemotherapy , diabetes, high cholesterol. Patient admitted with nausea and vomiting generalized malaise with fever up to 103 for 3 days. Has some nonproductive cough no dysuria evaluation chest x ray was unremarkable UA is unclear about UTI patient started on broad-spectrum antibiotic Zosyn and vancomycin I think at this point I will also consult ID for input regarding no clear source of the infection white count is 1.6 from chemotherapy 04/15 Patient seen and examined Says she feels the same no fever or chills. has low grade fever not high enough to meet neutropenic fever has some dry cough no dysuria ID evaluation appreciated white count is down to 0.6 with hemoglobin also down to 6.8 I will consult oncology for follow-up is all likely due to chemotherapy response . awaits infection disease follow evaluation and will discharge when okay from ID standpoint and oncology standpoint 04/16 Patient is seen and examined the patient feels much better oncology evaluation noted and appreciated ID follow-up evaluation noted patient now afebrile white count has improved now 1.5 to she is no longer neutropenic by definition - Exam Vitals: Temp Pulse Resp BP Pulse Ox 98.4 F 91 12 97/64 100 04/16/18 10:22 04/16/18 10:22 04/16/18 10:22 04/16/18 10:22 04/16/18 10:22 Exam: General: Alert and oriented 3; sitting up in bed in no acute distress. Skin:Normal color, no rash, no lesions. Port-A-Cath noted in right anterior ch est wall. No surrounding erythema or tenderness to palpation. HEENT:EOM, pupils equal, round and reactive. No lesions of the mouth. Positive for Virchows node in the left supraclavicular space. Cardiovascular:Normal S1 & S2, no rubs, murmurs or gallops. No JVD. Pulse regular. Lungs/Chest:Normal breath sounds, no wheezes or crackles. Abdomen:Soft, non-tender, no rigidity. Extremities:No deformity, no edema or tenderness, no joint swelling or clubbing. Neurological:Normal cognition and motor skills. Pulses:Carotid and radial pulses normal +2. Rest of the physical exam is non contributory - Assessment and Plan (1) Fever Current Visit: Yes Status: Acute Assessment and Plan: cfever curve improved (2) Nausea and vomiting Current Visit: Yes Status: Resolved Assessment and Plan: resolved (3) Pancytopenia due to chemotherapy Current Visit: Yes Status: Acute Assessment and Plan: resolving appreciate oncology input (4) Type 2 diabetes mellitus Current Visit: Yes Status: Chronic Assessment and Plan: continue on sliding scale (5) Sepsis Current Visit: Yes Status: Acute Assessment and Plan: resolving appreciate ID input - Time Spent with Patient Total time spent is greater than 50% in coordination of care (as documented) at patient's floor/unit and/or counseling patient: Internal Medicine: Result - Labs CBC & Chem 7: 04/16/18 03:33 04/16/18 03:33 Labs: Short CBC 04/15/18 04/16/18 Range/Units 15:32 03:33 WBC 0.7 L* 1.5 L D (4.3-11.1) K/mcL Hgb 6.8 L 6.6 L (11.5-15.4) g/dL Hct 21.8 L 21.1 L (35.3-44.9) % Plt Count 204 182 (140-400) K/mcL Neutrophils # 0.4 L 1.1 L (1.6-8.9) K/mcL BMP 04/15/18 04/16/18 11:15 03:33 Sodium 135 L 135 L Potassium 3.4 L 4.1 Chloride 103 103 Carbon Dioxide 23 24 BUN 10 9 Creatinine 0.44 L 0.47 L Glucose 253 H 125 H Calcium 8.7 8.9 Urine 04/15/18 Range/Units 16:55 Urine Color Yellow (Yellow) Urine Clarity Clear (Clear) Urine pH 7.0 (5.0-8.0) pH Units Ur Specific [place] > 1.030 H (1.010-1.025) Urine Protein Negative (Neg-Trace) mg/dL Urine Glucose (UA) Normal (Normal) mg/dL - ABG Interpretation ABG results: PT/INR, D-dimer PT 15.3 Seconds (9.4-12.1) H 04/14/18 06:00 - Impressions Impressions Abdomen/Pelvis CT 04/15/18 13:30 IMPRESSION: 1. Status post left mastectomy likely related to breast cancer. There is evidence of left axillary and left pectoral masses, likely representing malignant lymphadenopathy. 2. Multiple liver lesions likely representing metastatic disease. 3. Large stephanie hepatis mass likely representing malignant lymphadenopathy. 4. Significant retroperitoneal lymphadenopathy. D/ / 04/15/2018 14:52:22 Cherelle Harris MD / kinartap Interpreting Provider: Cherelle Harris MD Chest CT 04/15/18 13:30 IMPRESSION: 1. Status post left mastectomy likely related to breast cancer. There is evidence of left axillary and left pectoral masses, likely representing malignant lymphadenopathy. 2. Multiple liver lesions likely representing metastatic disease. 3. Large stephanie hepatis mass likely representing malignant lymphadenopathy. 4. Significant retroperitoneal lymphadenopathy. D/ / 04/15/2018 14:52:22 Cherelle Harris MD / honey Interpreting Provider: Cherelle Harris MD Head CT 04/15/18 13:30 IMPRESSION: No acute intracranial abnormality. D/ / Cherelle Harris MD / Cherelle Harris MD Interpreting Provider: Cherelle Harris MD Consult Discharge Plan - Plan Referrals: Hanh Pittman, [employer] [Primary Care Provider] - (1) Fever Qualifiers: Fever type: unspecified Qualified Code(s): R50.9 - Fever, unspecified (2) Nausea and vomiting Qualifiers: Vomiting type: unspecified Vomiting Intractability: non-intractable Qualified Code(s): R11.2 - Nausea with vomiting, unspecified (4) Type 2 diabetes mellitus Qualifiers: Diabetes mellitus intermediate manager insulin use: unspecified intermediate manager insulin use status Diabetes mellitus complication detail: with other oral complications Qualified Code(s): E11.638 - Type 2 diabetes mellitus with other oral complications (5) Sepsis Qualifiers: Sepsis type: sepsis due to unspecified organism Qualified Code(s): A41.9 - Sepsis, unspecified organism
[2018-04-16] MEDS: Piperacillin/Tazobactam 3.375 GM in 0.9 % Sodium Chloride Mini Bag 100 ML IVPB SCH (11:15)
--- NOTE | 2018-04-16 13:04 | Oncology Inp Progress Note ---
<IgnacioYakov Ash - Last Filed: 04/16/18 15:39> Date of Encounter: 04/16/18 Time of Encounter: 12:25 (1) Breast cancer Current Visit: Yes Status: Acute Assessment and plan: Refer to consultation note for full oncologic history Briefly patient sees Dr. Luo with [facility]. Progression noted on most recent imaging from 04/03/18 while on carboplatin, treated 04/10/18 with C1D1 Carboplatin/Gemcitabi, this was the first time this combination of chemotherapy was given to this patient. Patient admitted early this week with fever, nausea, and sepsis of unknown source Neutropenia noted on 04/15 with ANC of <500 Given Neupogen on 04/15 with improvement in neutrophils to ANC of ~1100 Plan: -Neupogen given yesterday with good response today noted on CBC, will hold Neupogen today as ANC is >1.0 and follow -Blood cultured, port cultures, and urine cultures with negative growth to date. No source identified on CT imaging of chest/abd/pelvis -ID following and recommending de-escalation of vanc/zosyn to Levoquin now that fever profile is improving, although patient did have fever of 100.6 overnight. Will need to follow closely for subsequent fevers now that abx have been de- escalated. -She will follow up with Dr. Mccormack after this acute process has resolved for further oncology management and recommendations. Qualifiers: Breast location: unspecified site of breast Estrogen receptor status: unspecified Patient sex: female Laterality: left Qualified Code(s): C50.912 - Malignant neoplasm of unspecified site of left female breast (2) Sepsis Current Visit: Yes Status: Acute Assessment and plan: SIRS criteria present on admission. No identified source Blood, urine, or port cultures negative growth CT head, chest, abd, pelvis with no obvious infectious etiology Fever profile is improving with Tmax of 100.6 overnight Plan: -ID following, recommending continuation de-escalation of broad spectrum abx to levoquin since fevers and neutropenia are improving. -Will take off of neutropenic precautions. -Improving neutropenia, will hold Neupogen and follow labs Qualifiers: Sepsis type: sepsis due to unspecified organism Qualified Code(s): A41.9 - Sepsis, unspecified organism (3) Neutropenia Current Visit: Yes Status: Acute Assessment and plan: Improving since given Neupogen will follow as above Qualifiers: Neutropenia type: unspecified Qualified Code(s): D70.9 - Neutropenia, unspecified (4) Anemia Current Visit: Yes Status: Acute Assessment and plan: Microcytic anemia present since admission 04/13 Hgb 7.1, given one unit of PRBCs 04/13, most recent Hgb is 6.6 No evidence of ongoing bleeding by physical exam, CT of Head, chest, abd, pelvis Chemotherapy likely contributing to anemia Plan: Given 1 unit of PRBCs on 04/13 with little improvement in H/H Will give 1 unit of PRBCs Recheck and transfuse if Hgb < 7.0 Consider obtaining iron profile, B12, folate, and ferritin Qualifiers: Anemia type: unspecified type Qualified Code(s): D64.9 - Anemia, unspecified Oncology: Subj Interval history: Patient was seen and evaluated at the bedside. At present she is comfortable with no complaints. Feels that her initial presenting symptom of nausea, vomiting, and fever are resolving and she is wanting to get out of the hospital. Admits to some cough which has been persistent but not worsening. Denies fever, chills, nausea, vomiting, change in bowels. Denies rash or skin lesion, denies mucosal ulcers or discharge. - Constitutional Vitals: Vital Signs Temp Pulse Resp BP Pulse Ox 04/16/18 11:00 100 04/16/18 10:22 98.4 F 91 12 97/64 100 04/16/18 07:22 98.2 F 83 16 100/74 99 04/16/18 03:29 99.7 F H 90 14 112/74 99 04/16/18 00:25 100.6 F H 04/15/18 20:07 99.8 F H 98 16 104/68 97 04/15/18 16:12 99.7 F H 91 15 116/75 100 Intake and Output 04/15/18 04/16/18 04/16/18 23:59 07:59 15:59 Intake Total 350 / 350 100 / 100 480 / 480 Output Total 800 / 800 800 / 800 Balance -450 / -450 -700 / -700 480 / 480 Intake: IV Fluids 350 / 350 100 / 100 Zosyn 3.375 GM In 0.9 % Sodium 100 / 100 100 / 100 Chloride (Mini-Bag +) 100 ML @ 25 mls/hr IVPB Q8HR [facility] Rx#: [id number] Vancocin 1,000 MG In 0.9 % 250 / 250 Sodium Chloride 250 ML @ 167 mls/hr IVPB Q12H [facility] Rx#: [id number] Oral 0 / 0 0 / 0 480 / 480 Output: Urine 800 / 800 800 / 800 Other: Meal Breakfast Percent of Meal Consumed 75% Blood Glucose* 298 132 195 General appearance: average body habitus, no acute distress - Head Head exam: Present: atraumatic, normocephalic - Eye Eye exam: Present: PERRL, conjuntiva pink - ENT ENT exam: Present: mucous membranes moist - Neck Neck exam: Present: full ROM. Absent: lymphadenopathy, tenderness - Respiratory Respiratory exam: Present: CTAB. Absent: accessory muscle use, rales, wheezes - Cardiovascular Cardiovascular exam: Present: RRR, +S1, +S2. Absent: diastolic murmur, systolic murmur - GI/Abdominal GI/Abdominal exam: Present: normal bowel sounds, soft. Absent: distended, guarding, rigid - Extremities Exam Extremities exam: Present: normal inspection. Absent: calf tenderness, pedal edema - Back Exam Back exam: Present: normal inspection. Absent: paraspinal tenderness, vertebral tenderness - Neurological Exam Neurological exam: Present: alert, CN II-XII intact, oriented X3, no focal deficits - Psychiatric Psychiatric exam: Present: normal affect, normal mood - Skin Skin exam: Absent: erythema, rash Oncology: Obj Data - Labs CBC & Chem 7: 04/16/18 03:33 04/16/18 03:33 Labs: Laboratory Results - last 24 hr 04/15/18 04/15/18 04/15/18 07:17 15:32 15:49 WBC 0.7 L* RBC 2.76 L Hgb 6.8 L Hct 21.8 L MCV 79.0 L MCH 24.6 L MCHC 31.2 L RDW 21.8 H Plt Count 204 MPV 8.3 L Immature Gran % 1.5 Seg Neutrophils % 49.3 Lymphocytes % 33.8 Monocytes % 10.8 Eosinophils % 3.1 Basophils % 1.5 Neutrophils # 0.4 L Lymphocytes # 0.2 L Monocytes # 0.1 Eosinophils # 0.0 Basophils # 0.0 Platelet Estimate Hypochromasia Anisocytosis Sodium Potassium Chloride Carbon Dioxide BUN Creatinine Est GFR ( Amer) Est GFR (Non-Af Amer) BUN/Creatinine Ratio Glucose POC Glucose 113 H Calculated Osmolality Calcium Magnesium Amylase 242 H Lipase 195 H Urine Color Urine Clarity Urine pH Ur Specific [place] Urine Protein Urine Glucose (UA) Urine Ketones Urine Blood Urine Nitrite Urine Bilirubin Urine Urobilinogen Ur Leukocyte Esterase 04/15/18 04/15/18 04/16/18 16:55 20:10 03:33 WBC RBC Hgb Hct MCV MCH MCHC RDW Plt Count MPV Immature Gran % Seg Neutrophils % Lymphocytes % Monocytes % Eosinophils % Basophils % Neutrophils # Lymphocytes # Monocytes # Eosinophils # Basophils # Platelet Estimate Hypochromasia Anisocytosis Sodium 135 L Potassium 4.1 Chloride 103 Carbon Dioxide 24 BUN 9 Creatinine 0.47 L Est GFR ( Amer) > 60 Est GFR (Non-Af Amer) > 60 BUN/Creatinine Ratio 19 Glucose 125 H POC Glucose 298 H Calculated Osmolality 280 Calcium 8.9 Magnesium 1.3 L Amylase Lipase Urine Color Yellow Urine Clarity Clear Urine pH 7.0 Ur Specific [place] > 1.030 H Urine Protein Negative Urine Glucose (UA) Normal Urine Ketones Negative Urine Blood Negative Urine Nitrite Negative Urine Bilirubin Negative Urine Urobilinogen 4.0 H Ur Leukocyte Esterase Negative 04/16/18 04/16/18 04/16/18 03:33 07:26 11:42 WBC 1.5 L D RBC 2.64 L Hgb 6.6 L Hct 21.1 L MCV 79.9 L MCH 25.0 L MCHC 31.3 L RDW 21.8 H Plt Count 182 MPV 9.0 L Immature Gran % 0.7 Seg Neutrophils % 74.6 Lymphocytes % 15.8 Monocytes % 7.5 Eosinophils % 1.4 Basophils % 0.0 Neutrophils # 1.1 L Lymphocytes # 0.2 L Monocytes # 0.1 Eosinophils # 0.0 Basophils # 0.0 Platelet Estimate Normal Hypochromasia Present A Anisocytosis 2+ A Sodium Potassium Chloride Carbon Dioxide BUN Creatinine Est GFR ( Amer) Est GFR (Non-Af Amer) BUN/Creatinine Ratio Glucose POC Glucose 132 H 195 H Calculated Osmolality Calcium Magnesium Amylase Lipase Urine Color Urine Clarity Urine pH Ur Specific [place] Urine Protein Urine Glucose (UA) Urine Ketones Urine Blood Urine Nitrite Urine Bilirubin Urine Urobilinogen Ur Leukocyte Esterase - Impressions Impressions Abdomen/Pelvis CT 04/15/18 13:30 IMPRESSION: 1. Status post left mastectomy likely related to breast cancer. There is evidence of left axillary and left pectoral masses, likely representing malignant lymphadenopathy. 2. Multiple liver lesions likely representing metastatic disease. 3. Large stephanie hepatis mass likely representing malignant lymphadenopathy. 4. Significant retroperitoneal lymphadenopathy. D/ / 04/15/2018 14:52:22 Cherelle Harris MD / honey Interpreting Provider: Cherelle Harris MD Chest CT 04/15/18 13:30 IMPRESSION: 1. Status post left mastectomy likely related to breast cancer. There is evidence of left axillary and left pectoral masses, likely representing malignant lymphadenopathy. 2. Multiple liver lesions likely representing metastatic disease. 3. Large stephanie hepatis mass likely representing malignant lymphadenopathy. 4. Significant retroperitoneal lymphadenopathy. D/ / 04/15/2018 14:52:22 Cherelle Harris MD / honey Interpreting Provider: Cherelle Harris MD Head CT 04/15/18 13:30 IMPRESSION: No acute intracranial abnormality. D/ / Cherelle Harris MD / Cherelle Harris MD Interpreting Provider: Cherelle Harris MD - ABG Interpretation ABG results: PT/INR, D-dimer PT 15.3 Seconds (9.4-12.1) H 04/14/18 06:00 Consult Discharge Plan - Plan Referrals: Hanh Pittman, BUSINESS SUPPORT ASSOCIATE [Primary Care Provider] - <Mello Fagan - Last Filed: 04/16/18 16:19> Date of Encounter: 04/16/18 - Constitutional Vitals: Vital Signs Temp Pulse Resp BP Pulse Ox 04/16/18 14:40 98.4 F 94 12 97/65 04/16/18 11:00 100 04/16/18 10:22 98.4 F 91 12 97/64 100 04/16/18 07:22 98.2 F 83 16 100/74 99 04/16/18 03:29 99.7 F H 90 14 112/74 99 04/16/18 00:25 100.6 F H 04/15/18 20:07 99.8 F H 98 16 104/68 97 Intake and Output 04/16/18 04/16/18 04/16/18 00:59 08:59 16:59 Intake Total 350 / 350 100 / 100 720 / 720 Output Total 1200 / 1200 Balance -850 / -850 100 / 100 720 / 720 Intake: IV Fluids 350 / 350 100 / 100 Zosyn 3.375 GM In 0.9 % Sodium 100 / 100 100 / 100 Chloride (Mini-Bag +) 100 ML @ 25 mls/hr IVPB Q8HR [facility] Rx#: [id number] Vancocin 1,000 MG In 0.9 % 250 / 250 Sodium Chloride 250 ML @ 167 mls/hr IVPB Q12H [facility] Rx#: [id number] Oral 0 / 0 720 / 720 Output: Urine 1200 / 1200 Other: Meal Lunch Percent of Meal Consumed 25% Blood Glucose* 298 132 195 Oncology: Obj Data - Labs CBC & Chem 7: 04/16/18 03:33 04/16/18 03:33 Labs: Laboratory Results - last 24 hr 04/13/18 04/15/18 04/15/18 19:42 07:17 15:32 WBC 0.7 L* RBC 2.76 L Hgb 6.8 L Hct 21.8 L MCV 79.0 L MCH 24.6 L MCHC 31.2 L RDW 21.8 H Plt Count 204 MPV 8.3 L Immature Gran % 1.5 Seg Neutrophils % 49.3 Lymphocytes % 33.8 Monocytes % 10.8 Eosinophils % 3.1 Basophils % 1.5 Neutrophils # 0.4 L Lymphocytes # 0.2 L Monocytes # 0.1 Eosinophils # 0.0 Basophils # 0.0 Platelet Estimate Hypochromasia Anisocytosis Sodium Potassium Chloride Carbon Dioxide BUN Creatinine Est GFR ( Amer) Est GFR (Non-Af Amer) BUN/Creatinine Ratio Glucose POC Glucose 113 H Calculated Osmolality Calcium Magnesium Amylase Lipase Urine Color Urine Clarity Urine pH Ur Specific [place] Urine Protein Urine Glucose (UA) Urine Ketones Urine Blood Urine Nitrite Urine Bilirubin Urine Urobilinogen Ur Leukocyte Esterase Blood Type O POSITIVE Antibody Screen NEGATIVE Crossmatch See Detail 11/14/18 11/14/18 11/14/18 15:49 16:47 16:55 WBC RBC Hgb Hct MCV MCH MCHC RDW Plt Count MPV Immature Gran % Seg Neutrophils % Lymphocytes % Monocytes % Eosinophils % Basophils % Neutrophils # Lymphocytes # Monocytes # Eosinophils # Basophils # Platelet Estimate Hypochromasia Anisocytosis Sodium Potassium Chloride Carbon Dioxide BUN Creatinine Est GFR ( Amer) Est GFR (Non-Af Amer) BUN/Creatinine Ratio Glucose POC Glucose 150 H Calculated Osmolality Calcium Magnesium Amylase 242 H Lipase 195 H Urine Color Yellow Urine Clarity Clear Urine pH 7.0 Ur Specific [place] > 1.030 H Urine Protein Negative Urine Glucose (UA) Normal Urine Ketones Negative Urine Blood Negative Urine Nitrite Negative Urine Bilirubin Negative Urine Urobilinogen 4.0 H Ur Leukocyte Esterase Negative Blood Type Antibody Screen Crossmatch 04/15/18 04/16/18 04/16/18 20:10 03:33 03:33 WBC 1.5 L D RBC 2.64 L Hgb 6.6 L Hct 21.1 L MCV 79.9 L MCH 25.0 L MCHC 31.3 L RDW 21.8 H Plt Count 182 MPV 9.0 L Immature Gran % 0.7 Seg Neutrophils % 74.6 Lymphocytes % 15.8 Monocytes % 7.5 Eosinophils % 1.4 Basophils % 0.0 Neutrophils # 1.1 L Lymphocytes # 0.2 L Monocytes # 0.1 Eosinophils # 0.0 Basophils # 0.0 Platelet Estimate Normal Hypochromasia Present A Anisocytosis 2+ A Sodium 135 L Potassium 4.1 Chloride 103 Carbon Dioxide 24 BUN 9 Creatinine 0.47 L Est GFR ( Amer) > 60 Est GFR (Non-Af Amer) > 60 BUN/Creatinine Ratio 19 Glucose 125 H POC Glucose 298 H Calculated Osmolality 280 Calcium 8.9 Magnesium 1.3 L Amylase Lipase Urine Color Urine Clarity Urine pH Ur Specific [place] Urine Protein Urine Glucose (UA) Urine Ketones Urine Blood Urine Nitrite Urine Bilirubin Urine Urobilinogen Ur Leukocyte Esterase Blood Type Antibody Screen Crossmatch 04/16/18 04/16/18 07:26 11:42 WBC RBC Hgb Hct MCV MCH MCHC RDW Plt Count MPV Immature Gran % Seg Neutrophils % Lymphocytes % Monocytes % Eosinophils % Basophils % Neutrophils # Lymphocytes # Monocytes # Eosinophils # Basophils # Platelet Estimate Hypochromasia Anisocytosis Sodium Potassium Chloride Carbon Dioxide BUN Creatinine Est GFR ( Amer) Est GFR (Non-Af Amer) BUN/Creatinine Ratio Glucose POC Glucose 132 H 195 H Calculated Osmolality Calcium Magnesium Amylase Lipase Urine Color Urine Clarity Urine pH Ur Specific [place] Urine Protein Urine Glucose (UA) Urine Ketones Urine Blood Urine Nitrite Urine Bilirubin Urine Urobilinogen Ur Leukocyte Esterase Blood Type Antibody Screen Crossmatch - Impressions Impressions Abdomen/Pelvis CT 04/15/18 13:30 IMPRESSION: 1. Status post left mastectomy likely related to breast cancer. There is evidence of left axillary and left pectoral masses, likely representing malignant lymphadenopathy. 2. Multiple liver lesions likely representing metastatic disease. 3. Large stephanie hepatis mass likely representing malignant lymphadenopathy. 4. Significant retroperitoneal lymphadenopathy. D/ / 04/15/2018 14:52:22 Cherelle Harris MD / honey Interpreting Provider: Cherelle Harris MD Chest CT 04/15/18 13:30 IMPRESSION: 1. Status post left mastectomy likely related to breast cancer. There is evidence of left axillary and left pectoral masses, likely representing malignant lymphadenopathy. 2. Multiple liver lesions likely representing metastatic disease. 3. Large stephanie hepatis mass likely representing malignant lymphadenopathy. 4. Significant retroperitoneal lymphadenopathy. D/ / 04/15/2018 14:52:22 Cherelle Harris MD / honey Interpreting Provider: Cherelle Harris MD - ABG Interpretation ABG results: PT/INR, D-dimer PT 15.3 Seconds (9.4-12.1) H 04/14/18 06:00 Inpatient Charges Provider: Dr. Tiesha Fagan Follow up - Inpatient: [id number] - Attending Attestation I examined this patient and my medical decision-making was reviewed with the Advanced Practice Nurse. I agree with the documented findings, disposition and treatment plan as described except to the extent set forth below. ANC > 1000, d/c neupogen Hgb 6.6, will transfuse 1 unit of PRBCs. Transfusion parameters: please transfuse 1 unit of PRBCs for Hgb < 7.0 Will w/u anemia; iron studies, B12, folate Now on IV Levaquin for antibiotic coverage. Cultures NGTD
[2018-04-16] MEDS: Levofloxacin 750 MG/150 ML 750 MG/150 ML BAG IVPB SCH (15:58)
[2018-04-16] MEDS ORDERED: Aminoglycoside Consult 1 EACH MC ONE (16:00)
[2018-04-16] MEDS ORDERED: 0.9 % Sodium Chloride 250 ML ONE (17:11)
[2018-04-16 17:55] LABS: mecA Methicillin-Resist Gene DETECTED (Not Detect)
[2018-04-16 17:56] LABS: Acinetobacter baumannii by PCR Not Detected (Not Detect); Candida albicans by PCR Not Detected (Not Detect); Candida glabrata by PCR Not Detected (Not Detect); Candida krusei by PCR Not Detected (Not Detect); Candida parapsilosis by PCR Not Detected (Not Detect); Candida tropicalis by PCR Not Detected (Not Detect); Enterobacter cloacae Cmplx PCR Not Detected (Not Detect); Enterobacteriaceae by PCR Not Detected (Not Detect); Enterococcus by PCR Not Detected (Not Detect); Escherichia coli by PCR Not Detected (Not Detect); Klebsiella oxytoca by PCR Not Detected (Not Detect); Klebsiella pneumoniae by PCR Not Detected (Not Detect); Proteus by PCR Not Detected (Not Detect); Pseudomonas aeruginosa by PCR Not Detected (Not Detect); Serratia marcescens by PCR Not Detected (Not Detect); Staphylococcus aureus by PCR Not Detected (Not Detect); Staphylococcus by PCR DETECTED (Not Detect); Streptococcus agalactiae(B)PCR Not Detected (Not Detect); Streptococcus by PCR Not Detected (Not Detect); Streptococcus pneumoniae PCR Not Detected (Not Detect); Streptococcus pyogenes (A) PCR Not Detected (Not Detect)
[2018-04-17 03:48] LABS: Hematocrit 22.9 % (35.3-44.9); Hemoglobin 7.3 g/dL (11.5-15.4); Mean Corpuscular HGB Conc 31.9 g/dL (31.6-35.5); Mean Corpuscular Hemoglobin 25.7 pg (28.0-33.3); Mean Corpuscular Volume 80.6 fL (83.0-100.0); Mean Platelet Volume 8.1 fL (9.4-12.4); Platelet Count 128 K/mcL (140-400); Red Blood Count 2.84 M/mcL (3.82-4.97); Red Cell Distribution Width 20.7 % (11.5-14.5)
[2018-04-17 03:57] LABS: % Iron Saturation 15 % (15-50); Iron 27 mcg/dL (50-170); Transferrin 131 mg/dL (203-362)
[2018-04-17 04:20] LABS: Ferritin > 1500 ng/mL (10-120)
[2018-04-17 04:31] LABS: Folate 11.2 ng/mL (3.0-16.0)
[2018-04-17] MEDS: Insulin LISPRO 300 UNITS/3 ML VIAL SQ SCH (08:14)
[2018-04-17] MEDS: Levofloxacin 750 MG/150 ML 750 MG/150 ML BAG IVPB SCH (10:08)
--- NOTE | 2018-04-17 10:09 | Internal Med Progress Note ---
Hospitalist Progress Note - Encounter Date of Encounter: 04/17/18 Time of Encounter: 10:10 - Subjective Interval History: Patient with history of metastatic breast cancer to liver on chemotherapy , diabetes, high cholesterol. Patient admitted with nausea and vomiting generalized malaise with fever up to 103 for 3 days. Has some nonproductive cough no dysuria evaluation chest x ray was unremarkable UA is unclear about UTI patient started on broad-spectrum antibiotic Zosyn and vancomycin I think at this point I will also consult ID for input regarding no clear source of the infection white count is 1.6 from chemotherapy 04/15 Patient seen and examined Says she feels the same no fever or chills. has low grade fever not high enough to meet neutropenic fever has some dry cough no dysuria ID evaluation appreciated white count is down to 0.6 with hemoglobin also down to 6.8 I will consult oncology for follow-up is all likely due to chemotherapy response . awaits infection disease follow evaluation and will discharge when okay from ID standpoint and oncology standpoint 04/16 Patient is seen and examined the patient feels much better oncology evaluation noted and appreciated ID follow-up evaluation noted patient now afebrile white count has improved now 1.5 to she is no longer neutropenic by definition 04/17 Patient seen and examined she feels much better oncology follow-up evaluation noted she responded to Neupogen white count is now 3.5 hemoglobin is up to 7.3 she is afebrile and clinically no symptoms will await on ID follow-up evaluation to decide on possible discharge - Exam Vitals: Temp Pulse Resp BP Pulse Ox 98.5 F 84 14 101/71 99 04/17/18 04:17 04/17/18 04:17 04/17/18 04:17 04/17/18 04:17 04/17/18 04:17 Exam: General: Alert and oriented 3; sitting up in bed in no acute distress. Skin:Normal color, no rash, no lesions. Port-A-Cath noted in right anterior chest wall. No surrounding erythema or tenderness to palpation. HEENT:EOM, pupils equal, round and reactive. No lesions of the mouth. Positive for [place] node in the left supraclavicular space. Cardiovascular:Normal S1 & S2, no rubs, murmurs or gallops. No JVD. Pulse regular. Lungs/Chest:Normal breath sounds, no wheezes or crackles. Abdomen:Soft, non-tender, no rigidity. Extremities:No deformity, no edema or tenderness, no joint swelling or clubbing. Neurological:Normal cognition and motor skills. Pulses:Carotid and radial pulses normal +2. Rest of the physical exam is non contributory - Assessment and Plan (1) Fever Current Visit: Yes Status: Acute Assessment and Plan: Patient now afebrile cultures has been negative (2) Nausea and vomiting Current Visit: Yes Status: Resolved Assessment and Plan: Resolved (3) Pancytopenia due to chemotherapy Current Visit: Yes Status: Acute Assessment and Plan: Patient responded to Neupogen white count 93.5 hemoglobin 7.3 (4) Type 2 diabetes mellitus Current Visit: Yes Status: Chronic (5) Sepsis Current Visit: Yes Status: Acute Assessment and Plan: Antibiotic being De escalated she remains afebrile awaits ID follow-up evaluation and decide on possible discharge There has been no obvious source of infection blood cultures so far negative - Time Spent with Patient Total time spent is greater than 50% in coordination of care (as documented) at patient's floor/unit and/or counseling patient: Internal Medicine: Result - Labs CBC & Chem 7: 04/17/18 03:21 04/16/18 03:33 Labs: Short CBC 04/17/18 Range/Units 03:21 WBC 3.5 L D (4.3-11.1) K/mcL Hgb 7.3 L (11.5-15.4) g/dL Hct 22.9 L (35.3-44.9) % Plt Count 128 L (140-400) K/mcL - ABG Interpretation ABG results: PT/INR, D-dimer PT 15.3 Seconds (9.4-12.1) H 04/14/18 06:00 Consult Discharge Plan - Plan Referrals: Hanh Pittman, DIRECTOR OF MATH [Primary Care Provider] - (1) Fever Qualifiers: Fever type: unspecified Qualified Code(s): R50.9 - Fever, unspecified (2) Nausea and vomiting Qualifiers: Vomiting type: unspecified Vomiting Intractability: non-intractable Qualified Code(s): R11.2 - Nausea with vomiting, unspecified (4) Type 2 diabetes mellitus Qualifiers: Diabetes mellitus care home insulin use: unspecified care home insulin use status Diabetes mellitus complication detail: with other oral complications Qualified Code(s): E11.638 - Type 2 diabetes mellitus with other oral complications (5) Sepsis Qualifiers: Sepsis type: sepsis due to unspecified organism Qualified Code(s): A41.9 - Sepsis, unspecified organism
[2018-04-17 11:09] VITALS: BP 93/68
--- NOTE | 2018-04-17 11:39 | Oncology Inp Progress Note ---
<Yakov Pierre Ash - Last Filed: 04/17/18 16:49> Date of Encounter: 04/17/18 Time of Encounter: 10:05 (1) Breast cancer Status: Acute Assessment and plan: Refer to consultation note for full oncologic history Briefly patient sees Dr. Luo with [facility]. Progression noted on most recent imaging from 04/03/18 while on carboplatin, treated 04/10/18 with C1D1 Carboplatin/Gemcitabi, this was the first time this combination of chemotherapy was given to this patient. Patient admitted early this week with fever, nausea, and sepsis of unknown source Neutropenia noted on 04/15 with ANC of <500 Given Neupogen on 04/15 with improvement in neutrophil counts Plan: -Neupogen given 04/15 with good response today noted on CBC, will hold Neupogen as ANC is >1.0 and follow -Blood cultured, port cultures, and urine cultures obtained. Port culture did reveal non-staph aureus gram positive cocci -ID following and recommending de-escalation of antibiotics now that fever profile is improving, Last fever was approx 36 hrs ago. -She will follow up with Dr. Mccormack after this acute process has resolved for further oncology management and recommendations. Qualifiers: Breast location: unspecified site of breast Estrogen receptor status: unspecified Patient sex: female Laterality: left Qualified Code(s): C50.912 - Malignant neoplasm of unspecified site of left female breast (2) Sepsis Status: Acute Assessment and plan: SIRS criteria present on admission. No identified source Blood, urine, or port cultures obtained. Port culture with non staph aureus gram positive cocci CT head, chest, abd, pelvis with no obvious infectious etiology Fever profile is improving with no fevers in last 36 hrs. Plan: -ID following, recommending discharge on 7 days doxycycline. Additionally ID recommending repeat port blood cultures before discharge to discern port infection vs. skin arlette contaminant. Patient will be discharge on abx per ID. -Improving neutropenia, continue to hold Neupogen and follow labs -She will follow up with her [facility] heme/onc for further recommendations of chemotherapy and for results of repeat port cultures Qualifiers: Sepsis type: sepsis due to unspecified organism Qualified Code(s): A41.9 - Sepsis, unspecified organism (3) Neutropenia Status: Acute Assessment and plan: Improving since given Neupogen will follow as above Qualifiers: Neutropenia type: unspecified Qualified Code(s): D70.9 - Neutropenia, unspecified (4) Anemia Status: Acute Assessment and plan: Microcytic anemia present since admission 04/13 Hgb 7.1, given one unit of PRBCs 04/13, and one unit on 04/16 No evidence of ongoing bleeding by physical exam, CT of Head, chest, abd, pelvis Chemotherapy likely contributing to anemia Plan: Hemoglobin 7.3 today Continue to follow and transfuse for hemoglobin of <7.0 Qualifiers: Anemia type: unspecified type Qualified Code(s): D64.9 - Anemia, unspecified Oncology: Subj Interval history: Patient was seen and evaluated at the bedside. She continues to endorse improvement in nausea, vomiting, and fevers which prompt her initial presentation. She would like go home as soon as she is able. No new complaints today. - Constitutional Vitals: Vital Signs Temp Pulse Resp BP Pulse Ox 04/17/18 11:07 98.3 F 88 12 93/68 100 04/17/18 04:17 98.5 F 84 14 101/71 99 04/16/18 23:54 99.3 F 96 15 102/69 98 04/16/18 21:00 98.2 F 90 14 105/76 97 04/16/18 19:59 97.6 F 116 15 94/59 99 04/16/18 18:00 99.3 F 97 16 104/73 100 04/16/18 17:45 99.1 F 91 16 106/75 99 04/16/18 14:40 98.4 F 94 12 97/65 Intake and Output 04/16/18 04/17/18 04/17/18 23:59 07:59 15:59 Intake Total 1144 / 1144 104 / 104 400 / 400 Output Total 1000 / 1000 800 / 800 Balance 144 / 144 -696 / -696 400 / 400 Intake: IV Fluids 254 / 254 104 / 104 Levaquin Premix 750mg/150 mL 150 / 150 750 mg In 150 ml @ 100 mls/hr IVPB DAILY PENDING SALE TO [facility] Rx#:[id number] Magnesium Sulfate 2 GM In 0.9 % 104 / 104 104 / 104 Sodium Chloride 100 ML @ 104 mls/hr IVPB ONCE ONE Rx#: [id number] Oral 540 / 540 0 / 0 400 / 400 Blood Product 350 / 350 Rbcs Leuko Poor As-3 2nd Unit 350 / 350 [id number] Output: Urine 1000 / 1000 800 / 800 Other: Meal Dinner Percent of Meal Consumed 50% Weight 72.4 kg Blood Glucose* 160 142 Patient Weight 04/17/18 23:59 Weight 72.4 kg General appearance: average body habitus, no acute distress - Head Head exam: Present: atraumatic, normocephalic - Eye Eye exam: Present: PERRL, conjuntiva pink - Neck Neck exam: Present: full ROM. Absent: lymphadenopathy, tenderness - Respiratory Respiratory exam: Present: CTAB. Absent: accessory muscle use, wheezes - Cardiovascular Cardiovascular exam: Present: RRR, +S1, +S2. Absent: diastolic murmur, systolic murmur - GI/Abdominal GI/Abdominal exam: Present: normal bowel sounds, soft. Absent: distended, guarding, rigid - Extremities Exam Extremities exam: Present: normal inspection. Absent: joint swelling, pedal edema - Back Exam Back exam: Absent: paraspinal tenderness, vertebral tenderness - Neurological Exam Neurological exam: Present: alert, CN II-XII intact, oriented X3, no focal deficits - Psychiatric Psychiatric exam: Present: normal affect, normal mood - Skin Skin exam: Present: dry, normal color Oncology: Obj Data - Labs CBC & Chem 7: 04/17/18 03:21 04/17/18 13:01 Labs: Laboratory Results - last 24 hr 04/13/18 04/15/18 04/15/18 19:42 16:13 16:47 WBC RBC Hgb Hct MCV MCH MCHC RDW Plt Count MPV POC Glucose 150 H Iron % Saturation Transferrin Ferritin Vitamin B12 Folate A. baumannii (PCR) Not Detected Neela albicans (PCR) Not Detected C. glabrata (PCR) Not Detected C. krusei (PCR) Not Detected C. parapsilosis (PCR) Not Detected C. tropicalis (PCR) Not Detected Enterobacteriac sp PCR Not Detected E. cloacae complex PCR Not Detected Enterococcus sp PCR Not Detected E. coli (PCR) Not Detected H. influenzae (PCR) Not Detected Klebsiella oxytoca PCR Not Detected Klebsiella pneumoniae Not Detected List. monocytogenes PCR Not Detected N. meningitidis (PCR) Not Detected Proteus species (PCR) Not Detected Serratia marcescens PCR Not Detected Staphylococcus sp PCR DETECTED A Staph aureus (PCR) Not Detected mecA-Methicil Res Gene DETECTED A Streptococcus sp PCR Not Detected Group A Strep DNA Not Detected Group B Strep (PCR) Not Detected Strep pneumoniae (PCR) Not Detected P. aeruginosa (PCR) Not Detected Rhina/B-Vanco Res Genes N/A KPC (blaKPC) Detect PCR N/A Blood Type O POSITIVE Antibody Screen NEGATIVE Crossmatch See Detail 04/16/18 04/16/18 04/16/18 11:42 16:14 20:31 WBC RBC Hgb Hct MCV MCH MCHC RDW Plt Count MPV POC Glucose 195 H 159 H 160 H Iron % Saturation Transferrin Ferritin Vitamin B12 Folate A. baumannii (PCR) Neela albicans (PCR) C. glabrata (PCR) C. krusei (PCR) C. parapsilosis (PCR) C. tropicalis (PCR) Enterobacteriac sp PCR E. cloacae complex PCR Enterococcus sp PCR E. coli (PCR) H. influenzae (PCR) Klebsiella oxytoca PCR Klebsiella pneumoniae List. monocytogenes PCR N. meningitidis (PCR) Proteus species (PCR) Serratia marcescens PCR Staphylococcus sp PCR Staph aureus (PCR) mecA-Methicil Res Gene Streptococcus sp PCR Group A Strep DNA Group B Strep (PCR) Strep pneumoniae (PCR) P. aeruginosa (PCR) Rhina/B-Vanco Res Genes KPC (blaKPC) Detect PCR Blood Type Antibody Screen Crossmatch 04/17/18 04/17/18 04/17/18 03:21 03:21 03:21 WBC 3.5 L D RBC 2.84 L Hgb 7.3 L Hct 22.9 L MCV 80.6 L MCH 25.7 L MCHC 31.9 RDW 20.7 H Plt Count 128 L MPV 8.1 L POC Glucose Iron 27 L % Saturation 15 Transferrin 131 L Ferritin > 1500 H Vitamin B12 1243 H Folate 11.2 A. baumannii (PCR) Neela albicans (PCR) C. glabrata (PCR) C. krusei (PCR) C. parapsilosis (PCR) C. tropicalis (PCR) Enterobacteriac sp PCR E. cloacae complex PCR Enterococcus sp PCR E. coli (PCR) H. influenzae (PCR) Klebsiella oxytoca PCR Klebsiella pneumoniae List. monocytogenes PCR N. meningitidis (PCR) Proteus species (PCR) Serratia marcescens PCR Staphylococcus sp PCR Staph aureus (PCR) mecA-Methicil Res Gene Streptococcus sp PCR Group A Strep DNA Group B Strep (PCR) Strep pneumoniae (PCR) P. aeruginosa (PCR) Rhina/B-Vanco Res Genes KPC (blaKPC) Detect PCR Blood Type Antibody Screen Crossmatch - ABG Interpretation ABG results: PT/INR, D-dimer PT 15.3 Seconds (9.4-12.1) H 04/14/18 06:00 Consult Discharge Plan - Plan Referrals: Hanh Pittman, ACCOUNT DEVELOPMENT REPRESENTATIVE [Primary Care Provider] - Prescriptions: RX: Doxycycline 100 mg PO BID #14 capsule <Srinivasan Norris - Last Filed: 04/17/18 17:21> Date of Encounter: 04/17/18 Oncology: Subj Interval history: I examined this patient and my medical decision-making was reviewed with res ident physician Yakov Pierre. I agree with the documented findings, disposition and treatment plan as described except to the extent set forth below. She was advised to contact [facility] for appointment early next wk - Constitutional Vitals: Vital Signs Temp Pulse Resp BP Pulse Ox 04/17/18 11:07 98.3 F 88 12 93/68 100 04/17/18 04:17 98.5 F 84 14 101/71 99 04/16/18 23:54 99.3 F 96 15 102/69 98 04/16/18 21:00 98.2 F 90 14 105/76 97 04/16/18 19:59 97.6 F 116 15 94/59 99 04/16/18 18:00 99.3 F 97 16 104/73 100 04/16/18 17:45 99.1 F 91 16 106/75 99 Intake and Output 04/17/18 04/17/18 04/17/18 07:59 15:59 23:59 Intake Total 104 / 104 550 / 550 Output Total 800 / 800 Balance -696 / -696 550 / 550 Intake: IV Fluids 104 / 104 150 / 150 Levaquin Premix 750mg/150 mL 150 / 150 750 mg In 150 ml @ 100 mls/hr IVPB DAILY PENDING SALE TO [facility] Rx#:[id number] Magnesium Sulfate 2 GM In 0.9 % 104 / 104 Sodium Chloride 100 ML @ 104 mls/hr IVPB ONCE ONE Rx#: [id number] Oral 0 / 0 400 / 400 Output: Urine 800 / 800 Other: Weight 72.4 kg Blood Glucose* 212 Patient Weight 04/17/18 23:59 Weight 72.4 kg Oncology: Obj Data - Labs CBC & Chem 7: 04/17/18 03:21 04/17/18 13:01 Labs: Laboratory Results - last 24 hr 04/13/18 04/15/18 04/16/18 19:42 16:13 20:31 WBC RBC Hgb Hct MCV MCH MCHC RDW Plt Count MPV BUN Creatinine Est GFR ( Amer) Est GFR (Non-Af Amer) BUN/Creatinine Ratio POC Glucose 160 H Iron % Saturation Transferrin Ferritin Vitamin B12 Folate A. baumannii (PCR) Not Detected Neela albicans (PCR) Not Detected C. glabrata (PCR) Not Detected C. krusei (PCR) Not Detected C. parapsilosis (PCR) Not Detected C. tropicalis (PCR) Not Detected Enterobacteriac sp PCR Not Detected E. cloacae complex PCR Not Detected Enterococcus sp PCR Not Detected E. coli (PCR) Not Detected H. influenzae (PCR) Not Detected Klebsiella oxytoca PCR Not Detected Klebsiella pneumoniae Not Detected List. monocytogenes PCR Not Detected N. meningitidis (PCR) Not Detected Proteus species (PCR) Not Detected Serratia marcescens PCR Not Detected Staphylococcus sp PCR DETECTED A Staph aureus (PCR) Not Detected mecA-Methicil Res Gene DETECTED A Streptococcus sp PCR Not Detected Group A Strep DNA Not Detected Group B Strep (PCR) Not Detected Strep pneumoniae (PCR) Not Detected P. aeruginosa (PCR) Not Detected Rhina/B-Vanco Res Genes N/A KPC (blaKPC) Detect PCR N/A Blood Type O POSITIVE Antibody Screen NEGATIVE Crossmatch See Detail 04/17/18 04/17/18 04/17/18 03:21 03:21 03:21 WBC 3.5 L D RBC 2.84 L Hgb 7.3 L Hct 22.9 L MCV 80.6 L MCH 25.7 L MCHC 31.9 RDW 20.7 H Plt Count 128 L MPV 8.1 L BUN Creatinine Est GFR ( Amer) Est GFR (Non-Af Amer) BUN/Creatinine Ratio POC Glucose Iron 27 L % Saturation 15 Transferrin 131 L Ferritin > 1500 H Vitamin B12 1243 H Folate 11.2 A. baumannii (PCR) Neela albicans (PCR) C. glabrata (PCR) C. krusei (PCR) C. parapsilosis (PCR) C. tropicalis (PCR) Enterobacteriac sp PCR E. cloacae complex PCR Enterococcus sp PCR E. coli (PCR) H. influenzae (PCR) Klebsiella oxytoca PCR Klebsiella pneumoniae List. monocytogenes PCR N. meningitidis (PCR) Proteus species (PCR) Serratia marcescens PCR Staphylococcus sp PCR Staph aureus (PCR) mecA-Methicil Res Gene Streptococcus sp PCR Group A Strep DNA Group B Strep (PCR) Strep pneumoniae (PCR) P. aeruginosa (PCR) Rhina/B-Vanco Res Genes KPC (blaKPC) Detect PCR Blood Type Antibody Screen Crossmatch 04/17/18 13:01 WBC RBC Hgb Hct MCV MCH MCHC RDW Plt Count MPV BUN 14 Creatinine 0.58 L Est GFR ( Amer) > 60 Est GFR (Non-Af Amer) > 60 BUN/Creatinine Ratio 24 POC Glucose Iron % Saturation Transferrin Ferritin Vitamin B12 Folate A. baumannii (PCR) Neela albicans (PCR) C. glabrata (PCR) C. krusei (PCR) C. parapsilosis (PCR) C. tropicalis (PCR) Enterobacteriac sp PCR E. cloacae complex PCR Enterococcus sp PCR E. coli (PCR) H. influenzae (PCR) Klebsiella oxytoca PCR Klebsiella pneumoniae List. monocytogenes PCR N. meningitidis (PCR) Proteus species (PCR) Serratia marcescens PCR Staphylococcus sp PCR Staph aureus (PCR) mecA-Methicil Res Gene Streptococcus sp PCR Group A Strep DNA Group B Strep (PCR) Strep pneumoniae (PCR) P. aeruginosa (PCR) Rhina/B-Vanco Res Genes KPC (blaKPC) Detect PCR Blood Type Antibody Screen Crossmatch - ABG Interpretation ABG results: PT/INR, D-dimer PT 15.3 Seconds (9.4-12.1) H 04/14/18 06:00 Inpatient Charges Provider: Dr. Daksha Norris Follow up - Inpatient: [id number]
[2018-04-17] MEDS ORDERED: Vancomycin 1 EACH in 0.9 % Sodium Chloride 250 ML IVPB SCH (13:00)
--- NOTE | 2018-04-17 13:12 | Infectious Disease Progress No ---
Date of Encounter: 04/17/18 Time of Encounter: 13:07 - Assessment and Plan (1) Local infection due to Port-A-Cath Status: Acute Patient had 2 peripheral blood cultures on 04/13/2018 both of which are negative. Patient tells me that they were not done peripherally one was done per family and was done from the port but the documentation states otherwise. Culture from the port on 04/15/2018 one set came back positive for coag-negative staph. There is no peripheral culture obtained at that time. After long discussion with the patient and the fact that clinically she looks great and she has been afebrile and she is insisting on going home, I explained to her that usually coag-negative staph is a very indolent infection if it is infected and likely this is a contaminant but we have no way to prove. I told her ideally we would like to remove the Port-A-Cath was infected. After long discussion with her we decided to repeat cultures one from the port and one from the peripheral. I called nursing staff and explained to them how I want things done and they are aware. After that patient can go home on oral doxycycline 100 mg by mouth twice a day 7 days. Patient will follow up on the cultures. If the do come back positive we will notify her brisket puller/onco logist at [facility] to see if they want to try to salvage the port versus remove it versus other. Patient advised to come back to the emergency department if she starts having fevers and chills or any signs of infection again or if he starts having pain, erythema, drainage or just being sore from the port site. I asked the patient she was to follow-up with me as an outpatient and she stated she will just do it with her brisket puller oncologist at [facility]. Qualifiers: Encounter type: initial encounter Qualified Code(s): T80.212A - Local infection due to central venous catheter, initial encounter (2) Sepsis Status: Acute The patient had three SIRS criteria on admission (leukopenia, fever, tachycardia). Etiology unclear: viral syndrome vs. chemotherapy vs. other. Improved clinically. Fever curve improved and tachycardia resolved. MAXIMUM TEMPERATURE 100.6 overnight. Blood cultures drawn 04/13/18 are NGTD x 2 sets. Resolved Recommendations: - Await cultures. - Check procalcitonin. - Discontinue Vanc and Zosyn. - Start Levaquin 750mg IV daily. - Duration of treatment depends on the clinical picture. Can transition to PO antibiotics when ready for discharge to complete a total of 10 days of antibiotics. - Monitor renal function and for drug toxicity and dose-adjust antibiotics. Qualifiers: Sepsis type: sepsis due to unspecified organism Qualified Code(s): A41.9 - Sepsis, unspecified organism (3) Neutropenia Status: Acute Etiology: Unclear. Possible infection versus chemotherapy versus other. Improved. ANC [address] head, chest, abdomen, and pelvis non-revealing for source of infection. Tmax 100.5 overnight. Recommended transfer to [facility] for evaluation by her Hem/Onc team, but the patient declined. [facility] Hem/Onc consulted and following. 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 Follows with [facility]. Status post radical mastectomy 11/2017. Currently on Gemzar and Carboplatin, last dose 04/10/18. Consider conferring with patient's oncologist at [facility]. Qualifiers: Breast location: unspecified site of breast Estrogen receptor status: unspecified Patient sex: female Laterality: left Qualified Code(s): C50.9 12 - Malignant neoplasm of unspecified site of left female breast - Subjective Interval history: Patient seen and examined with family at the bedside. No acute events noted overnight. Patient is feeling great. Denies any headache. No URI symptoms. No chest pain or shortness of breath. No cough no sputum production. No nausea no vomiting no diarrhea no constipation no urinary symptoms. No pain or swelling or erythema around the right chest port. Infect Dis PN-Objective Data - Labs CBC & Chem 7: 04/17/18 03:21 04/17/18 13:01 Labs: Laboratory Results - last 24 hr 04/13/18 04/15/18 04/15/18 19:42 16:13 16:47 WBC RBC Hgb Hct MCV MCH MCHC RDW Plt Count MPV POC Glucose 150 H Iron % Saturation Transferrin Ferritin Vitamin B12 Folate A. baumannii (PCR) Not Detected Neela albicans (PCR) Not Detected C. glabrata (PCR) Not Detected C. krusei (PCR) Not Detected C. parapsilosis (PCR) Not Detected C. tropicalis (PCR) Not Detected Enterobacteriac sp PCR Not Detected E. cloacae complex PCR Not Detected Enterococcus sp PCR Not Detected E. coli (PCR) Not Detected H. influenzae (PCR) Not Detected Klebsiella oxytoca PCR Not Detected Klebsiella pneumoniae Not Detected List. monocytogenes PCR Not Detected N. meningitidis (PCR) Not Detected Proteus species (PCR) Not Detected Serratia marcescens PCR Not Detected Staphylococcus sp PCR DETECTED A Staph aureus (PCR) Not Detected mecA-Methicil Res Gene DETECTED A Streptococcus sp PCR Not Detected Group A Strep DNA Not Detected Group B Strep (PCR) Not Detected Strep pneumoniae (PCR) Not Detected P. aeruginosa (PCR) Not Detected Rhina/B-Vanco Res Genes N/A KPC (blaKPC) Detect PCR N/A Blood Type O POSITIVE Antibody Screen NEGATIVE Crossmatch See Detail 04/16/18 04/16/18 04/17/18 16:14 20:31 03:21 WBC 3.5 L D RBC 2.84 L Hgb 7.3 L Hct 22.9 L MCV 80.6 L MCH 25.7 L MCHC 31.9 RDW 20.7 H Plt Count 128 L MPV 8.1 L POC Glucose 159 H 160 H Iron % Saturation Transferrin Ferritin Vitamin B12 Folate A. baumannii (PCR) Neela albicans (PCR) C. glabrata (PCR) C. krusei (PCR) C. parapsilosis (PCR) C. tropicalis (PCR) Enterobacteriac sp PCR E. cloacae complex PCR Enterococcus sp PCR E. coli (PCR) H. influenzae (PCR) Klebsiella oxytoca PCR Klebsiella pneumoniae List. monocytogenes PCR N. meningitidis (PCR) Proteus species (PCR) Serratia marcescens PCR Staphylococcus sp PCR Staph aureus (PCR) mecA-Methicil Res Gene Streptococcus sp PCR Group A Strep DNA Group B Strep (PCR) Strep pneumoniae (PCR) P. aeruginosa (PCR) Rhina/B-Vanco Res Genes KPC (blaKPC) Detect PCR Blood Type Antibody Screen Crossmatch 04/17/18 04/17/18 03:21 03:21 WBC RBC Hgb Hct MCV MCH MCHC RDW Plt Count MPV POC Glucose Iron 27 L % Saturation 15 Transferrin 131 L Ferritin > 1500 H Vitamin B12 1243 H Folate 11.2 A. baumannii (PCR) Neela albicans (PCR) C. glabrata (PCR) C. krusei (PCR) C. parapsilosis (PCR) C. tropicalis (PCR) Enterobacteriac sp PCR E. cloacae complex PCR Enterococcus sp PCR E. coli (PCR) H. influenzae (PCR) Klebsiella oxytoca PCR Klebsiella pneumoniae List. monocytogenes PCR N. meningitidis (PCR) Proteus species (PCR) Serratia marcescens PCR Staphylococcus sp PCR Staph aureus (PCR) mecA-Methicil Res Gene Streptococcus sp PCR Group A Strep DNA Group B Strep (PCR) Strep pneumoniae (PCR) P. aeruginosa (PCR) Rhina/B-Vanco Res Genes KPC (blaKPC) Detect PCR Blood Type Antibody Screen Crossmatch Cultures: Cultures 04/15/18 16:13 Blood Culture - Preliminary Port System Gram Positive Cocci 04/15/18 17:00 Urine Culture - Final Urine,Clean Catch No growth. 04/15/18 17:00 Legionella Antigen - Final Urine,Clean Catch Streptococcus pneumoniae Antigen (M - Final 04/13/18 19:04 Blood Culture - Preliminary Peripheral Venipuncture Culture is incubating and being continuously monitored for growth. Final report to follow. 04/13/18 18:46 Blood Culture - Preliminary Peripheral Venipuncture Culture is incubating and being continuously monitored for growth. Final report to follow. Serology 04/15/18 04/15/18 04/14/18 Range/Units 16:55 16:13 17:38 Ur Specimen Adequacy Urine Color Yellow (Yellow) Urine Clarity Clear (Clear) Urine pH 7.0 (5.0-8.0) pH Units Ur Specific [place] > 1.030 H (1.010-1.025) Urine Protein Negative (Neg-Trace) mg/dL Urine Glucose (UA) Normal (Normal) mg/dL Urine Ketones Negative (Negative) mg/dL Urine Blood Negative (Negative) Urine Nitrite Negative (Negative) Urine Bilirubin Negative (Negative) Urine Urobilinogen 4.0 H (Normal) mg/dL Ur Leukocyte Esterase Negative (Negative) Urine Microscopic RBC (0-3) per hpf Urine Microscopic WBC (0-3) per hpf Ur Squamous Epith Cells (None-Few) per lpf Urine Bacteria (None-Few) per hpf Hyaline Casts (None-Few) per lpf Ur Culture Indicated? (NO) A. baumannii (PCR) Not Detected (Not Detect) Chlamy pneumoniae PCR Not Detected (Not Detect) Adenovirus (PCR) Not Detected (Not Detect) B. pertussis DNA (PCR) Not Detected (Not Detect) B.parapertussis DNA PCR Not Detected (Not Detect) Neela albicans (PCR) Not Detected (Not Detect) C. glabrata (PCR) Not Detected (Not Detect) C. krusei (PCR) Not Detected (Not Detect) C. parapsilosis (PCR) Not Detected (Not Detect) C. tropicalis (PCR) Not Detected (Not Detect) Coronavirus OC43 (PCR) Not Detected (Not Detect) Coronavirus HKU1 (PCR) Not Detected (Not Detect) Coronavirus 229E (PCR) Not Detected (Not Detect) Coronavirus NL63 (PCR) Not Detected (Not Detect) Enterobacteriac sp PCR Not Detected (Not Detect) E. cloacae complex PCR Not Detected (Not Detect) Enterococcus sp PCR Not Detected (Not Detect) E. coli (PCR) Not Detected (Not Detect) H. influenzae (PCR) Not Detected (Not Detect) Human Metapneumovir PCR Not Detected (Not Detect) Influenza A (H1) PCR Not Detected (Not Detect) Influ A (H1N1/09) PCR Not Detected (Not Detect) Influenza A (H3) PCR Not Detected (Not Detect) Influenza A Untype (PCR) Not Detected (Not Detect) Influenza Type B (PCR) Not Detected (Not Detect) Klebsiella oxytoca PCR Not Detected (Not Detect) Klebsiella pneumoniae Not Detected (Not Detect) List. monocytogenes PCR Not Detected (Not Detect) M.pneumoniae DNA (PCR) Not Detected (Not Detect) N. meningitidis (PCR) Not Detected (Not Detect) Parainfluenza 1 (PCR) Not Detected (Not Detect) Parainfluenza 2 (PCR) Not Detected (Not Detect) Parainfluenza 3 (PCR) Not Detected (Not Detect) Parainfluenza 4 (PCR) Not Detected (Not Detect) Proteus species (PCR) Not Detected (Not Detect) RSV (PCR) Not Detected (Not Detect) Entero/Rhino (PCR) Not Detected (Not Detect) Serratia marcescens PCR Not Detected (Not Detect) Staphylococcus sp PCR DETECTED A (Not Detect) Staph aureus (PCR) Not Detected (Not Detect) mecA-Methicil Res Gene DETECTED A (Not Detect) Streptococcus sp PCR Not Detected (Not Detect) Group A Strep DNA Not Detected (Not Detect) Group B Strep (PCR) Not Detected (Not Detect) Strep pneumoniae (PCR) Not Detected (Not Detect) P. aeruginosa (PCR) Not Detected (Not Detect) Rhina/B-Vanco Res Genes N/A (Not Detect) KPC (blaKPC) Detect PCR N/A (Not Detect) 04/13/18 Range/Units 19:11 Ur Specimen Adequacy See below A Urine Color Dark Yellow (Yellow) Urine Clarity Clear (Clear) Urine pH 6.5 (5.0-8.0) pH Units Ur Specific [place] 1.022 (1.010-1.025) Urine Protein 100 H (Neg-Trace) mg/dL Urine Glucose (UA) Normal (Normal) mg/dL Urine Ketones Trace H (Negative) mg/dL Urine Blood Negative (Negative) Urine Nitrite Negative (Negative) Urine Bilirubin Small H (Negative) Urine Urobilinogen >=8.0 H (Normal) mg/dL Ur Leukocyte Esterase Small H (Negative) Urine Microscopic RBC 5-15 H (0-3) per hpf Urine Microscopic WBC 5-15 H (0-3) per hpf Ur Squamous Epith Cells Many H (None-Few) per lpf Urine Bacteria Moderate H (None-Few) per hpf Hyaline Casts None Seen (None-Few) per lpf Ur Culture Indicated? NO. A (NO) A. baumannii (PCR) (Not Detect) Chlamy pneumoniae PCR (Not Detect) Adenovirus (PCR) (Not Detect) B. pertussis DNA (PCR) (Not Detect) B.parapertussis DNA PCR (Not Detect) Neela albicans (PCR) (Not Detect) C. glabrata (PCR) (Not Detect) C. krusei (PCR) (Not Detect) C. parapsilosis (PCR) (Not Detect) C. tropicalis (PCR) (Not Detect) Coronavirus OC43 (PCR) (Not Detect) Coronavirus HKU1 (PCR) (Not Detect) Coronavirus 229E (PCR) (Not Detect) Coronavirus NL63 (PCR) (Not Detect) Enterobacteriac sp PCR (Not Detect) E. cloacae complex PCR (Not Detect) Enterococcus sp PCR (Not Detect) E. coli (PCR) (Not Detect) H. influenzae (PCR) (Not Detect) Human Metapneumovir PCR (Not Detect) Influenza A (H1) PCR (Not Detect) Influ A (H1N1/09) PCR (Not Detect) Influenza A (H3) PCR (Not Detect) Influenza A Untype (PCR) (Not Detect) Influenza Type B (PCR) (Not Detect) Klebsiella oxytoca PCR (Not Detect) Klebsiella pneumoniae (Not Detect) List. monocytogenes PCR (Not Detect) M.pneumoniae DNA (PCR) (Not Detect) N. meningitidis (PCR) (Not Detect) Parainfluenza 1 (PCR) (Not Detect) Parainfluenza 2 (PCR) (Not Detect) Parainfluenza 3 (PCR) (Not Detect) Parainfluenza 4 (PCR) (Not Detect) Proteus species (PCR) (Not Detect) RSV (PCR) (Not Detect) Entero/Rhino (PCR) (Not Detect) Serratia marcescens PCR (Not Detect) Staphylococcus sp PCR (Not Detect) Staph aureus (PCR) (Not Detect) mecA-Methicil Res Gene (Not Detect) Streptococcus sp PCR (Not Detect) Group A Strep DNA (Not Detect) Group B Strep (PCR) (Not Detect) Strep pneumoniae (PCR) (Not Detect) P. aeruginosa (PCR) (Not Detect) Rhina/B-Vanco Res Genes (Not Detect) KPC (blaKPC) Detect PCR (Not Detect) Exam - Constitutional Vitals: Temp Pulse Resp BP Pulse Ox 98.3 F 88 12 93/68 100 04/17/18 11:07 04/17/18 11:07 04/17/18 11:07 04/17/18 11:07 04/17/18 11:07 General appearance: no acute distress, no febrile - Eye Eye exam: Present: EOMI, PERRL - Respiratory Respiratory exam: Present: CTAB. Absent: wheezes - Cardiovascular Cardiovascular exam: Present: RRR, +S1, +S2 Additional comments: chest port appears with no erythema, no edema, no drainage and non tender - GI/Abdominal GI/Abdominal exam: Present: normal bowel sounds, soft. Absent: tenderness Consult Discharge Plan - Plan Referrals: Hanh Pittman, MANAGER FLOAT [Primary Care Provider] - Prescriptions: RX: Doxycycline 100 mg PO BID #14 capsule
--- NOTE | 2018-04-17 13:27 | Discharge Summary ---
Orders not resulted at time of discharge: Pending orders 04/13/18 19:04 Culture,Blood [BC] Stat 04/15/18 14:39 CBC [Complete Blood Count] [HEME] Routine 04/15/18 16:13 Culture,Blood [BC] Routine 04/16/18 10:11 Procalcitonin Routine 04/17/18 13:01 BUN [Blood Urea Nitrogen (BUN)] Stat Creatinine Stat 04/17/18 13:02 Culture,Blood [BC] Stat 04/17/18 13:05 Culture,Blood [BC] Stat Date of Encounter: 04/17/18 Time of Encounter: 13:24 - Discharge Diagnosis (1) Fever Priority: Secondary Status: Acute Qualifiers: Fever type: unspecified Qualified Code(s): R50.9 - Fever, unspecified (2) Nausea and vomiting Priority: Secondary Status: Resolved Qualifiers: Vomiting type: unspecified Vomiting Intractability: non-intractable Qualified Code(s): R11.2 - Nausea with vomiting, unspecified (3) Pancytopenia due to chemotherapy Priority: Secondary Status: Acute (4) Type 2 diabetes mellitus Priority: Secondary Status: Chronic Qualifiers: Diabetes mellitus correction insulin use: unspecified terminal gauger insulin use status Diabetes mellitus complication status: with oral complications Diabetes mellitus complication detail: with other oral complications Qualified Code(s): E11.638 - Type 2 diabetes mellitus with other oral complications (5) Sepsis Priority: Primary Status: Acute Assessment and Plan: see ID progress note today for detail Qualifiers: Sepsis type: sepsis due to unspecified organism Qualified Code(s): A41.9 - Sepsis, unspecified organism Hospital course: Ms. Urban is a 52 year old female - Time Spent with Patient Total time spent providing and/or coordinating discharge services: Greater than 30 minutes - Discharge Medications Prescriptions: Doxycycline 100 mg PO BID #14 capsule Home Medications: Atorvastatin Calcium [Lipitor] 20 mg PO DAILY 05/10/16 [History] Glimepiride [Amaryl] 1 mg PO DAILY 05/10/16 [History] Sertraline [Zoloft] 100 mg PO DAILY 05/10/16 [History] Alogliptin Juvencio/Metformin HCl [Alogliptin-Metformin 12.5-500] 1 tab PO BID 04/13/18 [History] Doxycycline 100 mg PO BID #14 capsule 04/17/18 [Rx] Allergies/Adverse Reactions: Allergy/AdvReac Type Severity Reaction Status Date / Time No Known Allergies Allergy Verified 05/10/16 08:44 Date of admission: 04/13/18 20:17 Primary care physician: Hanh Pittman CNP Consults: 04/14/18 09:43 Consult to Infectious Diseases [CONS] Routine Consulting Provider: Infectious Disease [place] Reason for Consult: sepsis source unknown, leukopenic patient on chemo Time Notified: 09:44 Call Completed: No 04/15/18 08:52 Consult to Oncology [CONS] Routine Consulting Provider: [facility] Reason for Consult: worsening pancytopenia Time Notified: 08:53 Call Completed: No Discharging clinician: Tam Ha Anticipated date of discharge: 04/17/18 - Constitutional Vitals: Temp Pulse Resp BP Pulse Ox 98.3 F 88 12 93/68 100 04/17/18 11:07 04/17/18 11:07 04/17/18 11:07 04/17/18 11:07 04/17/18 11:07 Exam: General: Alert and oriented 3; sitting up in bed in no acute distress. Skin:Normal color, no rash, no lesions. Port-A-Cath noted in right anterior chest wall. No surrounding erythema or tenderness to palpation. HEENT:EOM, pupils equal, round and reactive. No lesions of the mouth. Positive for Virch[place] node in the left supraclavicular space. Cardiovascular:Normal S1 & S2, no rubs, murmurs or gallops. No JVD. Pulse regular. Lungs/Chest:Normal breath sounds, no wheezes or crackles. Abdomen:Soft, non-tender, no rigidity. Extremities:No deformity, no edema or tenderness, no joint swelling or clubbing. Neurological:Normal cognition and motor skills. Pulses:Carotid and radial pulses normal +2. Rest of the physical exam is non contributory - Patient Status Disposition: Home, Self-Care Condition: Good Functional capacity at discharge: independent ambulation Overall status at discharge: patient is progressing back to baseline - Discharge Instructions Follow Up With: Hanh Pittman CNP [Primary Care Provider] - - Diet and Activity Activity: other Diet: advance to your usual diet
[2018-04-17 14:03] LABS: BUN/Creatinine Ratio 24 (6-26); Blood Urea Nitrogen 14 mg/dL (6-20); eGFR For Non-African Americans > 60 (> 60)
--- NOTE | 2018-04-17 21:36 | Electrocardiograph Report ---
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
== END 2018-04-17 16:01 | disposition home or self-care (01) ==
LOC: EMEROOARM 17:57 → 3ANU 17:57
PROVIDERS: ADMIT Internal Medicine; ATTEND Internal Medicine